=== PATIENT | female | born 1965 | race Caucasian/White ===

== ENCOUNTER 2017-03-21 20:06 | Observation (INO) | payer OTHER, SELFPAY ==
[~2017-03-21 20:06] MED LIST: ISOVUE-370 76%-LOCM 1 ML ONE
--- OUTSIDE RECORDS SUMMARY | 2017-03-21 20:10 | XMS | Clinical Summary ---
:1965 Author Organization [facility] Address [address] [place] [address] Phone Care Team Providers Name Role Phone , Primary Care Provider Unavailable Allergies Active Allergy Reactions Severity Noted Date Comments Penicillins 12/05/2016 Ondansetron Hcl (Pf) 12/05/2016 Current Medications Prescription Sig. Disp. Refills Start Date End Date Status aspirin 81 MG EC Take 81 mg by Active tablet mouth daily. metoprolol (TOPROL-XL) Take 50 mg by Active 50 MG 24 hr tablet mouth daily. lisinopril Take 10 mg by Active (PRINIVIL,ZESTRIL) 10 mouth daily. MG tablet amiodarone (PACERONE) Take 1 tablet 30 tablet 1 12/08/2016 12/08/2017 Active 200 MG tablet (200 mg total) by mouth daily. amLODIPine (NORVASC) 5 Take 1 tablet (5 30 tablet 1 12/08/2016 12/08/2017 Active MG tablet mg total) by mouth daily. 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 (HCC) Benign hypertension 12/07/2016 PAD (peripheral artery disease) (HCC) 12/07/2016 Anxiety disorder 12/07/2016 Chest pain with moderate risk of acute coronary syndrome 12/05/2016 Social History Tobacco Use Types Packs/Day Years Used Date Former Smoker 0.5 5 Quit: 12/05/2012 Smokeless Tobacco: Never Used Tobacco Cessation:Counseling Given: No Alcohol Use Drinks/Week oz/Week Comments No Sex Assigned at Date Recorded Not on file Last Filed Vital Signs Vital Sign Reading Time Taken Blood Pressure 104/73 12/08/2016 4:00 PM CDT Pulse 63 12/08/2016 4:00 PM CDT Temperature 37.1 C (98.8 F) 12/08/2016 4:00 PM CDT Respiratory Rate 20 12/08/2016 4:00 PM CDT Oxygen Saturation 98% 12/08/2016 4:00 PM CDT Inhaled Oxygen Concentration - - Weight 56.2 kg (123 lb 12.8 oz) 12/08/2016 6:41 AM CDT Height 157.5 cm (5' 2") 12/05/2016 4:26 PM CDT Body Mass Index 22.64 12/08/2016 6:41 AM CDT Plan of Treatment Not on file Implants Implanted Type Area Sales Property Manager Device Expiration Model / Identifier Date Serial / Lot Env Absrb Antibact Tyrx Med - [id number] Cardiovascular N/A: [employer]:CARD 12/21/2016 [id number] / Implanted:Qty: 1 on 12/08/2016 by Carline Orona MD Chest RHY:DISEASE MGT / Wall Device Gen Viva Scrtd [id number] - [id number] Defibrillators [employer]TRONIC:CARD [id number] / Implanted:Qty: 1 on 12/08/2016 by Carline Orona MD RHY: DISEASE MGT [id number] / Results ARRYTHMIA IMPLANT REPORT - SCAN (02/01/2017 1:31 PM)RHYTHM STRIP - SCAN (2016 9:50 AM)from Last 3 Months
--- OUTSIDE RECORDS SUMMARY | 2017-03-21 20:10 | XMS | Clinical Summary ---
:1965 Author Organization [facility] Address [address] [place] [address] Phone Care Team Providers Name Role Phone , Primary Care Provider Unavailable Allergies Not on File Current Medications Not on file Active Problems Not on file Social History Tobacco Use Types Packs/Day Years Used Date Never Assessed Sex Assigned at Date Recorded Not on file Last Filed Vital Signs Not on file Plan of Treatment Not on file Results Not on filefrom Last 3 Months
[2017-03-21 20:53] LABS: #Basophils 0.1 thou/uL (0.0-0.2); #Eosinphils 0.1 thou/uL (0.0-0.7); #Lymphocytes 1.8 thou/uL (1.20-3.40); %Eosinophils 1.3 % (0.0-10.0); %Lymphocytes 20.2 % (21.0-51.0); %Monocytes 10.7 % (0.0-10.0); Hematocrit 42.6 % (36.0-47.0); Mean Platelet Volume 7.7 fL (7.4-10.4); White Blood Cell (WBC) Count 8.9 thou/uL (4.8-10.8)
--- NOTE | 2017-03-21 20:58 | RAD ---
UPRIGHT PORTABLE CHEST ONE VIEW: History: 51-year-old female with cough and crushing chest pain. FINDINGS: Left ICD. Post underlying sternotomy. Post-operative changes involving the aortic arch with an aorti c left subclavian bypass graft based on prior CT. Cardiomegaly. Increased linear and interstitial ma rkings bilaterally. Prominent proximal pulmonary artery segments. IMPRESSION: Cardiomegaly with post underlying sternotomy and left ICD. Enlarged proximal portable artery segment s. Mild increased linear interstitial markings bilaterally suggesting some mild congestion without c onfluent pneumonia or overt edema. Stable from prior study. POS: SUNDAY
[2017-03-21 20:59] LABS: PTT 28.7 SEC (22.9-36.1); Prothrombin Time 13.8 SEC (12.0-14.7)
[2017-03-21 21:13] LABS: ALT (SGPT) 34 U/L (8-55); AST (SGOT) 26 U/L (5-34); Alkaline Phosphatase 75 U/L (40-150); Anion Gap 14 mmol/L (10-20); BUN (Urea Nitrogen) 25 mg/dL (7.0-18.7); Bilirubin, Total 0.4 mg/dL (0.2-1.2); CK (CPK) 45 U/L (29-168); Calc. Creatinine Clearance 0 mL/min (70-130); Calcium 9.1 mg/dL (7.8-10.44); Carbon Dioxide 22 mmol/L (22-29); Chloride 106 mmol/L (98-107); Estimated GFR-MDRD 61; Lipase 48 U/L (8-78); Protein, Total 8.1 g/dL (6.0-8.3)
[2017-03-21 21:17] LABS: Troponin I 0.011 ng/mL (< 0.028)
[2017-03-21] MEDS ORDERED: Nitroglycerin 0.4 MG TAB (25 Tab Bottle) ONE (21:36)
[2017-03-21] MEDS ORDERED: Promethazine HCl 25 MG/ML VIAL ONE (21:36)
[2017-03-21] MEDS ORDERED: Morphine 10 MG/ML VIAL ONE (22:27)
[2017-03-21 22:54] LABS: Bilirubin Negative (Negative); Blood, Urine Negative (Negative); Glucose, Urine (Dipstick) Negative (Negative); Ketone, Urine Negative (Negative); Nitrite Negative (Negative); Protein, Urine (Dipstick) Negative (Neg-Trace)
[2017-03-22] MEDS ORDERED: Morphine 10 MG/ML VIAL ONE (00:39)
[2017-03-22] MEDS ORDERED: Ondansetron ODT 4 MG TAB SL PRN (02:10)
[2017-03-22] MEDS ORDERED: Ondansetron HCl/PF 4 MG/2 ML Vial IVP PRN ×2 (02:10→08:04)
[2017-03-22 02:36] VITALS: BMI 22.4
[2017-03-22 02:39] LABS: Troponin I 0.025 ng/mL (< 0.028)
[2017-03-22] MEDS: Morphine 10 MG/ML VIAL SLOW IVP PRN ×2 (02:53→07:09)
[2017-03-22 05:50] LABS: Troponin I 0.023 ng/mL (< 0.028)
[2017-03-22] MEDS ORDERED: Nitroglycerin 0.4 MG TAB (25 Tab Bottle) PO PRN (08:04)
[2017-03-22] MEDS ORDERED: Acetaminophen 325 MG TAB PO PRN (08:04)
[2017-03-22] MEDS ORDERED: Ondansetron ODT 4 MG TAB PO PRN (08:04)
[2017-03-22] MEDS ORDERED: Mag-Al 1200 mg/1200 mg/30 ML UDCUP PO PRN (08:04)
[2017-03-22] MEDS ORDERED: Lorazepam 1 MG TAB PO PRN (08:04)
--- NOTE | 2017-03-22 08:28 | HP ---
PRIMARY CARE PHYSICIAN: Dr. Beth. CHIEF COMPLAINT: Chest pain. HISTORY OF PRESENT ILLNESS: Ms. Hunt is a pleasant 51-year-old female who has a very complicated cardiac history. She has a history of coarctation of the aorta as well as ventricular septal defec t, which has been repaired. She also has a history of a defibrillator placed and she was recently h ospitalized back in September of this year with chest pain and at that time, she had a CT dissection debbie col, which was negative for dissection and it demonstrated stable coarctation of the aorta with a by pass and very severe dilatation of the main pulmonary artery and trunk and left pulmonary arteries. She also had an echocardiogram done at that time, which was essentially normal, showing an ejection fraction of 55%-60%, normal wall motion and normal chamber dimensions. The plan was for the patien t to undergo a stress test; however, the patient had left against medical advice. Since that time, the patient says that she was hospitalized back in September at which time her defibrillator went off 14 t imes and she was transferred to [facility] in the [facility] where she says she had a new defibr illator placed. She says after that she was doing okay until 2:00 p.m. yesterday when she said she had return of the chest pain, she says it was radiating to her back. It felt like a pressure. She says she also got a funny feeling in her neck and her jaw. She said this happened while she was nadeen misael a football game. She says there was no exertion. She also noted some nausea and said she had to go the bathroom several times with loose stools. She described it as a heaviness and pressure. No shortness of breath; however, but she does note increasing shortness of breath on exertion recen tly. She denies any heavy lifting. She says her does pretty much all of the lifting in the home and she got very anxious and scared and for this reason, she came to the ER for evaluation. I n the ER, she was given up to she says 5 sublingual nitroglycerin without relief. She says that the pain is still present, somewhat improved, but not completely gone yet. REVIEW OF SYSTEMS: Constitutional: There have been no fevers, chills, no night sweats. No weight loss. HEENT: She says she has a headache related to the nitroglycerin. No visual changes, no sore throat, rhinorrhea, neck pain, no adenopathy. Pulmonary: No hemoptysis, no cough, no wheezing. C ardiovascular: As the history of present illness. Gastrointestinal: No abdominal pain. She has h ad some nausea, but no vomiting and she has also had some loose stools. Genitourinary: No urinary frequency, hematuria, no hesitancy. Neurologic: No focal weakness, numbness, no seizures. Psychia tric: No symptoms of anxiety or depression. Skin and Integument: No skin changes. No rash. PAST MEDICAL HISTORY: Significant for ventricular septal defect, coarctation of the aorta, status p ost repair, hypertension, peripheral vascular disease, dyslipidemia, recurrent pleural effusions req uiring bleomycin. ALLERGIES: PENICILLIN and ZOFRAN. PAST SURGICAL HISTORY: She had pulmonary artery banding in 1967, ventriculoseptal defect repair in 1978 and again in 2000, coarctation repair in 2005, cholecystectomy and also a left iliac artery nabil t was completely occluded and required a stent placement in 03/2016, a right carotid endarterectomy and AICD placement, IVC filter placement, and hysterectomy. FAMILY HISTORY: Significant for coronary artery disease in her father. SOCIAL HISTORY: She is . She has two children. She is a former smoker. She quit 3 years a go. She says she only smoked for a very short period of time 3 years with minimal cigarettes during that time and denies any alcohol use. CODE STATUS: FULL CODE. CURRENT MEDICATIONS: Include amiodarone 200 mg daily, metoprolol 50 mg daily, lisinopril 10 mg ulices y, aspirin 81 mg daily, amlodipine 5 mg daily. PHYSICAL EXAMINATION: GENERAL: She is alert and oriented. She appears to be in no acute distress. VITAL SIGNS: Blood pressure was 128/63, heart rate 62, respiratory rate of 16, temperature is 97.6. HEENT: Her pupils are equal, round, and reactive. Extraocular muscles are intact. Sclerae are ani cteric. Throat: There is no erythema, no exudates. NECK: No adenopathy, no bruits. LUNGS: Clear to auscultation. There is no wheezing, no rales. CARDIOVASCULAR: She has a normal S1, S2. She does have a grade 2/6 systolic murmur. ABDOMEN: Soft, it is nontender, nondistended. Positive for bowel sounds. No rebound, no guarding. EXTREMITIES: There is no edema. She has got palpable pulses. NEUROLOGICALLY: The exam is nonfocal. SIGNIFICANT LABORATORY DATA AND X-RAY FINDINGS: On lab results, EKG is ventricularly paced. Her ur inalysis was essentially negative. CBC: White blood cell count 8.9, hemoglobin 14.5, hematocrit 42 .6, platelet count was 204. INR is 1.0. Sodium 138, potassium 3.9, chloride is 106, CO2 is 22, BUN of 25, creatinine 0.97, glucose is 107. ASSESSMENT AND PLAN: This is a 51-year-old female that presents with chest pain. This is in the se tting of patient who has had significant congenital heart disease and defects. This puts her at [facility] increased risk of coronary artery disease, especially with her history of peripheral vascular di sease and the need for stent placement. She will therefore be placed in observation. She has alrea dy been ruled out. We will get a nuclear stress test and also consult Cardiology due to the complex nature of her cardiac history.
[2017-03-22] MEDS ORDERED: Aspirin 325 MG TAB PO SCH (09:00)
[2017-03-22] MEDS ORDERED: AMIODARONE HCL 200 MG PO SCH (09:00)
[2017-03-22] MEDS: Aspirin 81 mg Enteric Coated Tablet PO SCH (09:03)
[2017-03-22] MEDS: Amlodipine 10 MG TAB PO SCH (09:03)
[2017-03-22] MEDS: Lisinopril 10 MG TAB PO SCH (09:04)
[2017-03-22] MEDS: Enoxaparin Sodium 40 MG/0.4 ML SYRINGE SC SCH ×2 (09:04→14:42)
[2017-03-22] MEDS: Lorazepam 0.5 MG TAB PO PRN ×2 (09:10→21:06)
[2017-03-22] MEDS: Lorazepam 2 MG/ML VIAL SLOW IVP PRN (13:02)
[2017-03-22] MEDS: Nitroglycerin 2% Ointment 1 INCH/1 GM Packet TOP SCH ×2 (15:17→21:11)
[2017-03-22] MEDS ORDERED: Iopamidol 370 76% 100 ML VIAL ONE (15:40)
[2017-03-22] MEDS ORDERED: Heparin 1,000 UNITS/ML VIAL ONE (17:28)
--- NOTE | 2017-03-22 17:36 | SPC ---
PICC LINE PLACEMENT FLUOROSCOPIC GUIDED: Date: 03/22/17 HISTORY: Need for long-term IV access. COMPARISON: PICC line dated 04/08/16. TECHNIQUE/FINDINGS: Informed consent was already obtained. Timeout was performed. The right arm was prepped and draped i n the normal sterile fashion. Using ultrasound guidance, the right brachial vein was initially acces sed as there was only a right brachial vein and a small collateral basilic vein available for the PI CC line. The brachial vein was accessed using a micropuncture kit. A wire was placed, although the w lindy at the level of the axilla could not be passed through. There is a focal stenosis. A small amoun t of contrast was instilled through the sheath and the small volume extraluminal contrast was seen. Then, the small basilic collateral vessel was accessed using Micropuncture kit after using 2 mL of l idocaine for local anesthesia. Wire was placed, and through a peel-away sheath, a 36 cm PICC was rodney falguni. The patient tolerated the procedure well and without complication. Fluoro Time: 1.7 minutes. IMPRESSION: Technically successful placement of a right basilic collateral PICC. The basilic at the level of the axilla was focally occluded or very stenosed and the contrast did extravasate to the level of the a xillary vein. POS: SUNDAY
--- NOTE | 2017-03-22 17:52 | CT ---
CTA CHEST AND ABDOMEN AORTIC DISSECTION PROTOCOL: Date: 03/22/17 HISTORY: Congenital heart disease, persistent chest pain. TECHNIQUE: CT angiogram of the chest and abdomen was performed after the intravenous administration of contrast . 3D rendering provided. FINDINGS: Heart size is markedly enlarged. PICC is in place with tip at the inferior SVC. There is some contrast of the right axilla from the PICC procedure. There is severe dilatation of the pulmonary trunk measuring 5.0 cm in size. Left and right pulmonary arteries are markedly enlarged. The aorta at the annulus measures 30.0 mm. The sinus of Valsalva measure 43.0 mm. Sinotubular juncti on measures 31.0 mm. Mid descending aorta measures 31.0 mm. There is coarctation of aorta with a subclavian aortic graft which is intact without significant vicente nosis. The aortic contour distal to this is normal. No aneurysmal dilatation. No dissection. There is an IV C filter at the level of the renal veins. The left renal vein is just craniad to this and the right renal vein is at the level of the IVC filter. There is a stent graft within the left common iliac artery which is patent. There is moderate pulmonary edema. Kidneys are unremarkable. Prior cholecystectomy. [place] effect of common bile duct. Spleen is unr emarkable, as well as the adrenal glands. IMPRESSION: 1. Intact left subclavian to thoracic aortic bypass with mild soft and calcific plaque. 2. Massive dilatation of the pulmonary trunk measuring up to 51 mm. 3. Mild pulmonary edema. 4. No evidence of aortic dissection. 5. Patent left common iliac artery stent. POS: SUNDAY
--- NOTE | 2017-03-22 18:23 | CON ---
DATE OF CONSULTATION: 03/22/2017 REFERRING PHYSICIAN: Taran Garcia M.D. PRIMARY CARE PHYSICIAN: Reese Beth M.D. in [place]. HISTORY OF PRESENT ILLNESS: Ms. Hunt is a 51-year-old lady with complex cardiac history involvin g coarctation repair, pulmonary arterial banding and VSD repair as a child. She has not followed [facility] congenital heart disease specialist due to insurance issues and only recently received SSI benefi ts that include Medicaid coverage. She had been seen multiple times at [facility] in [place], most recently in September when her defibrillator discharged 14 times consecutively. She has had a replacement device and has been stable from a rhythm standpoint since this time as far as she knows. She has been in her normal state of health without any cardiovascular symptoms until yesterday about 2:00 complaining of chest pain that radiated into the back. It feels like a pressure with some sha rp, associated features. It is nonexertional. It has been persistent since its onset at 2:[address] afternoon and serial cardiac enzymes proved negative for myocardial injury. Her rhythm has bee n stable on telemetry during her observation. PAST MEDICAL HISTORY: 1. VSD repair. 2. Left subclavian bypass for coaptation repair. 3. Hypertension. 4. Peripheral vascular disease with a history of iliac stenting. 5. Dyslipidemia. 6. Recurrent pleural effusions requiring bleomycin. PAST SURGICAL HISTORY: 1. Pulmonary artery banding. 2. VSD patch repair surgically. 3. Coarctation repair with left subclavian bypass in the distal thoracic aorta. 4. Cholecystectomy. 5. Left iliac artery stent. 6. Right carotid endarterectomy. 7. AICD implantation with replacement device. 8. IVC filter placement. 9. Hysterectomy. ALLERGIES: ONDANSETRON, PENICILLIN and HYDROCODONE. SOCIAL HISTORY: She is . She has two children. She is a former smoker, quit 3 years ago. She denies illicit drug use or alcohol abuse. FAMILY HISTORY: Negative with respect to premature atherosclerosis. CURRENT MEDICATIONS: At home include, 1. Amiodarone 200 mg daily. 2. Metoprolol 50 mg daily. 3. Lisinopril 10 mg daily. 4. Aspirin 81 mg daily. 5. Amlodipine 5 mg daily. REVIEW OF SYSTEMS: As per history of present illness. Remainder of 12 system review is negative. PHYSICAL EXAMINATION: VITAL SIGNS: Blood pressure is 120/63, pulse 62 and regular, respiratory rate 16 and nonlabored, te mperature 97.6, oxygen saturation 97% on room air. GENERAL: This is a well-developed, well-nourished 51-year-old female in no acute distress . She is alert and oriented x4. She answers questions appropriately. HEENT: The head was atraumatic, normocephalic. Pupils are equally round and reactive. Sclerae and conjunctivae are clear. There are no oral lesions. NECK: Supple, no JVD, thyromegaly, carotid bruits. CHEST: Symmetrical inspiration and expiration. HEART: Regular in rate and rhythm with a 2/6 systolic murmur at the left upper sternal border. PMI is nondisplaced, not enlarged. LUNGS: Clear to auscultation in all [place]. No adventitious sounds appreciated. ABDOMEN: Soft, nontender, nondistended, without mass or organomegaly. Bowel sounds are present in all 4 quadrants. No flank bruits auscultated. EXTREMITIES: 2+ pulses noted bilaterally. Lower extremity strength 5/5 bilaterally. There is no c lubbing, cyanosis or edema. NEUROLOGIC: Grossly intact with no focal motor deficits appreciated. DATABASE: EKG reveals sinus rhythm with right bundle branch block. There is intermittent AV pacing . LABORATORY DATA: CBC reveals a white count 8, H\T\H 14 and 42, platelet count 204,000, differential white blood cells normal. Red cell indices normocytic. Coagulation studies are normal. Chemistri es reveal normal electrolytes, BUN and creatinine 25 and 0.9, GFR is estimated at 61. Glucose 107. LFTs are normal. CK and troponin enzymes are normal serially. BNP was mildly elevated at 482. Review of her previous echo showed preserved LV function with ejection fraction 55%-60%. There was a mild residual VSD in the area of patch repair. Pulmonary arteries on CT chest done in July is year showed severely dilated pulmonary arteries, no evidence of aortic dissection. ASSESSMENT: 1. Persistent chest pain with negative workup for myocardial injury. 2. Complex congenital heart disease history. 3. History of left subclavian descending thoracic aortic bypass for coarctation. 4. History of pulmonary arterial banding with normal pulmonary artery pressures on last echocardiog antonino. 5. Hypertension, controlled. 6. Chronic kidney disease stage II. RECOMMENDATIONS: 1. From a cardiac standpoint, she is currently stable. Cardiac enzymes are serially flat with no e vidence of myocardial injury. I think our focus here should be on evaluation of her congenital hear t disease status as well as the status of her aorta with the character and quality of her pain and t he increased likelihood for issues related to her complex surgical history rather than coronary dise ase focus, I would recommend a repeat echo to evaluate the status of her VSD repair, her right ventr icular function and valvular status. We will compare this to her previous study dated earlier this year. 2. We would recommend a CT of the chest with dissection protocol given the quality and nature of he r pain and a history of subclavian to aortic bypass for coarctation repair. 3. I will have [employer] come to evaluate her device to evaluate for paroxysmal arrhythmias and vishnu e further recommendations when the database is further completed. I appreciate the opportunity to p articipate.
[2017-03-23] MEDS: Nitroglycerin 2% Ointment 1 INCH/1 GM Packet TOP SCH (06:33)
[2017-03-23 07:48] VITALS: TEMP 99.1
--- NOTE | 2017-03-23 08:49 | PDOC.PN ---
- Subjective Encounter Start Date: 03/23/17 Encounter Start Time: 08:46 Ms. Hunt says she has stable chest and back pain. - Objective Resuscitation Status: Resuscitation Status FULL:Full Resuscitation MAR Reviewed: Yes Vital Signs & Weight: Vital Signs (12 hours) Temp Pulse Resp BP BP Pulse Ox 03/23/17 07:55 99.1 F 62 18 03/23/17 07:43 99.1 F 62 18 118/61 96 03/23/17 05:13 20 03/23/17 03:30 98.7 F 75 18 132/86 96 03/23/17 01:05 16 128/63 03/22/17 23:09 98.7 F 63 16 91/52 L 97 Weight Admit Weight 122 lb 12.8 oz Weight 126 lb 9.6 oz I&O: 03/22/17 03/23/17 03/24/17 06:59 06:59 06:59 Intake Total 120 940 Output Total 400 Balance -280 940 Result Diagrams: 03/21/17 20:42 03/21/17 20:42 Phys Exam - Physical Examination HEENT: PERRLA Respiratory: no wheezing, no rales, no rhonchi, clear to auscultation bilateral Cardiovascular: RRR, no significant murmur Gastrointestinal: soft, non-tender, positive bowel sounds Musculoskeletal: no edema Dx/Plan (1) CHD (congenital heart disease) Status: Chronic Comment: s/p PA banding and VSD repair as child (2) HTN (hypertension) Code(s): I10 - ESSENTIAL (PRIMARY) HYPERTENSION Status: Chronic Qualifiers: (3) PVD (peripheral vascular disease) with claudication Code(s): I73.9 - PERIPHERAL VASCULAR DISEASE, UNSPECIFIED Status: Chronic (4) S/P IVC filter Status: Chronic Comment: unknown date. (5) Chest pain Code(s): R07.9 - CHEST PAIN, UNSPECIFIED Status: Resolved Comment: NM stress test tomorrow - Plan * Chest and back pain- ? etiology * CTA did not demonstrate any new findings * Echo has yet to be done, but patient would prefer to continue treatment in [place], where she had her prior surgery * Stable for discharge home..
[2017-03-23] MEDS: Lorazepam 2 MG/ML VIAL SLOW IVP PRN (09:20)
[2017-03-23] MEDS: Lisinopril 10 MG TAB PO SCH (09:20)
[2017-03-23] MEDS: Aspirin 81 mg Enteric Coated Tablet PO SCH (09:20)
[2017-03-23] MEDS: Amlodipine 10 MG TAB PO SCH (09:20)
[2017-03-23 09:21] VITALS: BP 128/63
--- NOTE | 2017-03-23 13:44 | DIS ---
PRIMARY CARE PHYSICIAN: Dr. Beth DATE OF ADMISSION: 03/22/2017 DATE OF DISCHARGE: 03/23/2017 DISCHARGE DISPOSITION: Home. PRIMARY DISCHARGE DIAGNOSES: 1. Chest and back pain, etiology is unknown. 2. History of coarctation of the aorta, status post repair. 3. History of ventricular septal defect status post repair. 4. History of pulmonary artery banding. 5. History of peripheral vascular disease with a left iliac artery occlusion, status post stent. 6. Generalized anxiety. DISCHARGE MEDICATIONS: Metoprolol succinate 50 mg daily, lisinopril 10 mg daily, lorazepam 0.5 mg t wice a day as needed, aspirin 81 mg daily, amlodipine 5 mg daily, amiodarone 200 mg daily. PROCEDURES DONE DURING ADMISSION: The patient had a CT dissection protocol which there was no evide nce of aortic dissection, the left subclavian thoracic aorta bypass had some small soft and calcific plaque. There was massive dilatation of the pulmonary trunk measuring 51 mm, mild pulmonary edema and a patent left common iliac stent. CODE STATUS: Full code. ALLERGIES: ZOFRAN, PENICILLIN and HYDROCODONE. HOSPITAL COURSE: Ms. Hunt is a pleasant 51-year-old female that presented to the emergency room complaining of chest pain, the full details of which are outlined in my history and physical. The p atient had a recent hospitalization within the last 7 months for chest pain as well. She was admitt ed again on this occasion and placed in observation. She was ruled out. Cardiology was consulted eloise barnes her complex cardiac history. A CT dissection protocol was obtained which was negative for any acute changes. An echocardiogram was planned; however, the patient decided that she would prefer to get her care in [place] where she had her previous surgeries before. It is noted that she made thi s decision after the IV morphine was discontinued. The patient seems to have a significant amount o f anxiety surrounding her diagnoses and I explained to her that it might be of some benefit to seek some counseling or possibly even a support group for adult survivors of congenital heart disease. S he believes that this was likely a good idea as well. She says that she is going to pursue further cardiac evaluation again in [place] and plans to see Dr. Araya in the outpatient setting with regards to her general Cardiology needs. She appears clinically stable. Her chest pain has not changed an d it is noted that she has had these symptoms on and off for the last 7 months without any significa nt changes on either her CT scan for a previous echo that had been done before. Therefore, I believ e it is safe for her to be discharged home and to have close outpatient followup with her primary ca re physician and also with the followup as previously mentioned.
== END 2017-03-23 10:04 | disposition home or self-care (01) ==
LOC: ERS 20:06 → 2SW 03-22
PROVIDERS: ADMIT Internal Medicine; ATTEND Internal Medicine
DX: R07.89 Other chest pain (principal); M54.9 Dorsalgia, unspecified; E78.5 Hyperlipidemia, unspecified; I10 Essential (primary) hypertension; J90 Pleural effusion, not elsewhere classified; I73.9 Peripheral vascular disease, unspecified; F41.1 Generalized anxiety disorder; Z88.0 Allergy status to penicillin; Z88.5 Allergy status to narcotic agent; Z88.8 Allergy status to other drugs, medicaments and biological substances; Z79.82 Long term (current) use of aspirin; Z79.899 Other long term (current) drug therapy; Z90.710 Acquired absence of both cervix and uterus; Z95.810 Presence of automatic (implantable) cardiac defibrillator; Z95.5 Presence of coronary angioplasty implant and graft; Z95.1 Presence of aortocoronary bypass graft; Z95.828 Presence of other vascular implants and grafts; Z98.890 Other specified postprocedural states; Z87.891 Personal history of nicotine dependence; Z87.74 Personal history of (corrected) congenital malformations of heart and circulatory system; Z82.49 Family history of ischemic heart disease and other diseases of the circulatory system
CPT/HCPCS: 36415; 36569; 71010; 71275; 80053; 80061; 81003; 82550; 82553; 83690; 83880; 84484; 85025; 85610; 85730; 93005; 94760; 96361; 96374; 96375; 96376; A4216; C1751; G0378; J1644; J1650; J2060; J2270; J2550; Q0162

== ENCOUNTER 2018-08-12 18:54 | Observation (INO) | payer MEDICAID, OTHER ==
[2018-08-12 19:27] LABS: #Basophils 0.1 thou/uL (0.0-0.2); #Eosinphils 0.3 thou/uL (0.0-0.7); #Lymphocytes 4.4 thou/uL (1.20-3.40); #Monocytes 1.5 thou/uL (0.11-0.59); #Neutrophils 6.5 thou/uL (1.40-6.50); %Basophils 1.1 % (0.0-1.0); %Eosinophils 2.5 % (0.0-10.0); %Lymphocytes 34.4 % (21.0-51.0); %Monocytes 11.8 % (0.0-10.0); %Neutrophils 50.2 % (42.0-75.0); Hemoglobin 15.1 g/dL (12.0-16.0); Mean Corpuscular Hemoglobin 30.2 pg (27.0-31.0); Mean Corpuscular Volume 91.5 fL (78.0-98.0); Mean Platelet Volume 7.5 fL (7.4-10.4); Platelet Count 382 thou/uL (130-400); RBC Distribution Width 12.6 % (11.5-14.5); Red Blood Cell (RBC) Count 5.01 mill/uL (4.20-5.40); White Blood Cell (WBC) Count 12.9 thou/uL (4.8-10.8)
[2018-08-12] MEDS ORDERED: Morphine 4 MG/ML VIAL ONE ×2 (19:44→20:57)
[2018-08-12] MEDS ORDERED: Promethazine HCl 25 MG/ML VIAL ONE (19:44)
--- NOTE | 2018-08-12 19:47 | RAD ---
CHEST ONE VIEW: 08/12/18 COMPARISON: 03/21/17 HISTORY: Pain. FINDINGS: Stable left sided defibrillator. There is sternotomy wires. Atherosclerosis of the aorta and cardiome melodie is again demonstrated. Hyperinflation with chronic changes. No pneumothorax or acute osseous abn ormalities. 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 IMPRESSION: No acute cardiopulmonary process. POS: [facility]
[2018-08-12 19:49] LABS: ALT (SGPT) 30 U/L (8-55); AST (SGOT) 19 U/L (5-34); Albumin 4.5 g/dL (3.5-5.0); Alkaline Phosphatase 101 U/L (40-150); Anion Gap 16 mmol/L (10-20); BUN (Urea Nitrogen) 16 mg/dL (9.8-20.1); Bilirubin, Total 0.5 mg/dL (0.2-1.2); CK (CPK) 30 U/L (29-168); Calc. Creatinine Clearance 0 mL/min (70-130); Calcium 9.8 mg/dL (7.8-10.44); Carbon Dioxide 26 mmol/L (22-29); Chloride 101 mmol/L (98-107); Estimated GFR-MDRD 77; Globulin 3.6 g/dL (2.4-3.5); Glucose 92 mg/dL (70-105); Potassium 3.3 mmol/L (3.5-5.1); Protein, Total 8.1 g/dL (6.0-8.3); Sodium 140 mmol/L (136-145)
--- NOTE | 2018-08-12 21:55 | CT ---
CT CHEST WITHOUT CONTRAST 08/12/18 HISTORY: Chest pain. Back pain. COMPARISON: Dissection protocol 03/22/17. FINDINGS: Limited evaluation of the mediastinum due to the lack of IV contrast. There is no mediastinal mass, lymphadenopathy or hematoma. There are stable calcifications along the anterior aspect of the pericardium. There is stable prominence of bilateral central and main pulmonar y arteries. There is stable calcification involving the aortic arch. No periaortic fat stranding. Sta ble bypass from the left subclavian artery to the descending thoracic aorta. The visualized upper solid abdominal viscera is unremarkable. Surgically absent gallbladder. IVC filt er is noted. Trachea and central bronchi are patent. There are patchy linear opacities involving the left and right upper lobes, similar to the previous examination suggesting areas of scar and atelecta sis. No suspicious masses or consolidation. No pneumothorax. No significant pleural fluid. No lytic or blastic lesions in the osseous structures. IMPRESSION: 1. Stable dilatation or the pulmonary arterial system, compatible with pulmonary artery hyperten randolph. 2. Stable atherosclerosis of the aorta. 3. Redemonstration of a left subclavian to thoracic aorta bypass. There is associated calcificat ion. POS: NO[facility]
[2018-08-12 23:03] LABS: Troponin I Less than 0.010 ng/mL (< 0.028)
[2018-08-13 00:45] VITALS: BMI 24.4
[2018-08-13] MEDS: traMADol HCl 50 MG TAB PO PRN ×2 (01:09→05:16)
[2018-08-13] MEDS: Lorazepam 0.5 MG TAB PO PRN ×2 (01:10→22:43)
[2018-08-13] MEDS ORDERED: HYDROcodone/Acetaminophen 5/325 mg Tablet PO PRN ×2 (01:10)
[2018-08-13] MEDS ORDERED: Promethazine HCl 12.5 MG in Sodium Chloride 0.9% 50 ML IVPB PRN (01:11)
[2018-08-13 01:31] LABS: Troponin I Less than 0.010 ng/mL (< 0.028)
[2018-08-13] MEDS ORDERED: Ondansetron PF 4 MG/2 ML Vial IVP PRN (02:14)
[2018-08-13] MEDS ORDERED: Zolpidem Tartrate 5 MG TAB PO PRN (02:14)
--- NOTE | 2018-08-13 02:46 | HP ---
CHIEF COMPLAINT: Chest pain. HISTORY OF PRESENT ILLNESS: This is a 53-year-old female presenting to the hospital with a significant history of coronary artery disease, status post CABG, as well as stent, and IVC filter, had an CA back in 2009, resulting in acute significant cardiac disease thereafter. The patient is being admitted for chest pain. States that the pain was apparently 10/10 in intensity at the site of her surgical site. The patient otherwise denies any other complaints. No associating factors. No alleviating or aggravating factors noted. The patient is seen and examined. All questions answered. ALLERGIES: TO ZOFRAN, PENICILLIN, AND HYDROCODONE. REVIEW OF SYSTEMS: All systems reviewed, pertinent positives in HPI, otherwise negative. FAMILY HISTORY: Positive for hypertension and coronary artery disease. SOCIAL HISTORY: Denies any smoking currently, quit 10 years ago. Used to do drugs. Social alcohol. HOME MEDICATIONS: See MAR. PHYSICAL EXAMINATION: VITAL SIGNS: Blood pressure 142/71, respiratory rate 18, temperature 98.8, and O2 saturations 100% on room air. GENERAL: Otherwise general, the patient lying in bed, in no acute discomfort. HEENT: Pupils are equal, round, and reactive to light and accommodation. Extraocular muscles are intact. Oral cavity moist and pink. NECK: Supple, mobile, and nontender. Thyroid appreciated. RESPIRATORY: Clear to auscultation bilaterally. No respiratory distress. CARDIOVASCULAR: S1 and S2. 2/6 systolic ejection murmur appreciated. No gallops or rubs noted. ABDOMEN: Positive bowel sounds. Soft, nontender, and nondistended. EXTREMITIES: 2+ peripheral pulses bilaterally. Trace edema. NEUROLOGIC: Cranial nerves 2 through 12 are intact. Alert and oriented x3. LABORATORY DATA: Laboratories [place], CBC reviewed. Basic metabolic panel reviewed. Troponin three negative thus far. The patient had a CT scan of the chest done while in the ER without contrast shows stable dilation of pulmonary arterial system, pulmonary hypertension, stable atherosclerosis of the aorta, and associated calcification of the left subclavian to thoracic aorta bypass. ASSESSMENT: 1. Chest pain. 2. Coronary artery disease. 3. Hyperlipidemia. 4. Hypertension. PLAN: At this point in time, we will admit the patient to Internal Medicine Team. Start the patient on aspirin, atorvastatin, beta georgina, and FREDDY. We will also provide DVT prophylaxis. At this point in time, we will also consult Cardiology given her extensive cardiac history. Place in observation. Possible discharge once the ACS is ruled out. FOLLOWUP VISITS: We will need to follow up with outpatient Cardiology within 1 to 2 weeks for potential stress test. Job ID: [id number]
[2018-08-13 05:44] LABS: #Eosinphils 0.2 thou/uL (0.0-0.7); #Lymphocytes 2.3 thou/uL (1.20-3.40); %Basophils 0.6 % (0.0-1.0); %Eosinophils 2.7 % (0.0-10.0); %Monocytes 13.7 % (0.0-10.0); Hemoglobin 13.7 g/dL (12.0-16.0); Mean Corpuscular HGB CONC 33.4 g/dL (32.0-36.0); Mean Corpuscular Hemoglobin 30.9 pg (27.0-31.0); Mean Corpuscular Volume 92.7 fL (78.0-98.0); Mean Platelet Volume 7.4 fL (7.4-10.4); Platelet Count 316 thou/uL (130-400); RBC Distribution Width 12.4 % (11.5-14.5); Red Blood Cell (RBC) Count 4.42 mill/uL (4.20-5.40); White Blood Cell (WBC) Count 7.5 thou/uL (4.8-10.8)
[2018-08-13 06:07] LABS: Anion Gap 11 mmol/L (10-20); BUN (Urea Nitrogen) 12 mg/dL (9.8-20.1); Calc. Creatinine Clearance 94 mL/min (70-130); Calcium 8.7 mg/dL (7.8-10.44); Carbon Dioxide 27 mmol/L (22-29); Chloride 103 mmol/L (98-107); Estimated GFR-MDRD Greater than 90; Glucose 83 mg/dL (70-105); Potassium 3.3 mmol/L (3.5-5.1); Sodium 138 mmol/L (136-145)
[2018-08-13 06:10] LABS: Troponin I 0.012 ng/mL (< 0.028)
[2018-08-13] MEDS ORDERED: Amlodipine 10 MG TAB PO SCH (09:00)
[2018-08-13] MEDS ORDERED: Enoxaparin Sodium 40 MG/0.4 ML SYRINGE SC SCH (09:00)
[2018-08-13] MEDS ORDERED: Amiodarone 200 MG TAB PO SCH (09:00)
[2018-08-13] MEDS ORDERED: Lisinopril 10 MG TAB PO SCH (09:00)
[2018-08-13] MEDS ORDERED: Aspirin 81 mg Enteric Coated Tablet PO SCH (09:00)
[2018-08-13] MEDS ORDERED: Ketorolac Tromethamine 30 MG/ML VIAL IVP SCH (09:45)
[2018-08-13] MEDS ORDERED: traMADol HCl 50 MG TAB PO PRN (10:15)
[2018-08-13] MEDS ORDERED: Potassium Chloride 20 MEQ TAB PO SCH (10:30)
[2018-08-13] MEDS: Morphine 4 MG/ML VIAL SLOW IVP PRN ×3 (11:08→20:42)
--- NOTE | 2018-08-13 11:44 | CON ---
DATE OF CONSULTATION: 08/13/2018 INDICATION FOR CONSULTATION: A 53-year-old female with chest pain. HISTORY OF PRESENT ILLNESS: This very unfortunate 53-year-old female has a history of congenital heart disease. She has had repair of a ventricular septal defect. Also, she has had banding of the pulmonary artery. She has also had a bypass from the left subclavian to the thoracic aorta due to a coarctation. She has been followed by lpn cma, Dr. Wilkinson in [place], [place]. She recently saw him earlier this year. She also had a defibrillator implanted. She has had pneumonia in the hospital back in late May and was in the hospital for more than 10 days on the ventilator. Since that time, she has been doing relatively well. She continues to smoke unfortunately. She smokes about 5 cigarettes a day, but has smoked up to about a pack a day and smoked for the last 10 years. She has had no significant problems otherwise, but has been having the chest discomfort yesterday while she was sitting watching TV. The pain occurred. She describes as being a sharp type pain which radiated into chest area radiating to the left neck and also to the back area, in the area of her previous lateral thoracotomy. She was seen in the emergency room and then was transferred to the floor. Her cardiac enzymes are negative. Her EKG shows 100% pacing from the AICD. At this time, this morning, she says she is feeling somewhat better, but still has some chest discomfort which comes and goes and is sharp in nature, radiating to the left back area and she says her nausea has improved. She also describes having some diaphoresis associated with the feet and hands, but no overall diuresis associated with the pain. I believe she was given some morphine in the emergency room with some help and then she has been placed on Toradol, but the pain is still rather persistent when it comes and goes, but again cardiac enzymes are negative and EKG is indeterminate. She has been told in the past that she needs to undergo a cardiac catheterization and her lpn cma in [place] has been trying to arrange this, but she has continued to put it off. She did have a cardiac catheterization in 2009, which showed mild coronary artery disease and has been advised to follow up and has also been advised to stop smoking and I reiterated that today that she absolutely needs to stop smoking. Her CT scan showed no acute changes and she does have bilateral enlargement of the pulmonary arteries and has what appears to be pulmonary hypertension. She had her echocardiogram she says within the last year with her lpn cma and reportedly was stable. PAST MEDICAL HISTORY: Noted for the congenital heart disease as noted above. She has had iliac stent placement in the left side. She has also had a right carotid endarterectomy performed. She has recurrent pleural effusions. She has had cholecystectomy, hysterectomy, and IVC filter placement. SOCIAL HISTORY: She is . She has 2 children. They are both adults. She is raising her grandchild. She continues to smoke. She has no alcohol use. She stays at home. FAMILY HISTORY: Noncontributory. ALLERGIES: SHE IS ALLERGIC TO ZOFRAN AND PENICILLIN. MEDICATIONS: Include: 1. At this time, amiodarone 200 mg a day, Norvasc 5 mg a day, aspirin 81 mg a day, atorvastatin 40 mg a day. 2. She has been placed on Lovenox. 3. 4. She is also on lisinopril 10 mg a day, metoprolol 50 mg a day, lorazepam 0.5 mg b.i.d. p.r.n. 5. She is also on other p.r.n. medications. REVIEW OF SYSTEMS: She has top dentures. She continues to smoke. She has no other complaints except for what was noted in the history of present illness. PHYSICAL EXAMINATION: GENERAL: Reveals a very pleasant, well-developed, middle-aged female. VITAL SIGNS: Blood pressure 124/63, heart rate is 62 and regular, respiratory rate 16. She is afebrile. HEENT: Shows the head to be normocephalic and atraumatic. She has a well- healed surgical incision over the right carotid. She has soft bilateral carotid bruits this may be radiating from the aortic area up into the carotids. Did not hear any significant bruits. The pulses are within normal limits. CHEST: Has late inspiratory wheezing noted in both upper lung whelan. Otherwise, I do not hear any rales or rhonchi. CARDIOVASCULAR: Reveals a regular rate and rhythm at this time and a soft systolic murmur of the entire precordium more of the sternal area. ABDOMEN: Soft and nontender. Positive bowel sounds are present. EXTREMITIES: Showed no clubbing, cyanosis, or edema. Femoral pulses are difficult to palpate but are present. I could not palpate popliteal or pedal pulses. She has a well-healed lateral thoracotomy incision of the left lateral chest. She has a defibrillator placed underneath the left clavicular area. NEUROLOGIC: She appears to be fully intact with no evidence of abnormalities. She has normal strength and normal tone. SKIN: Warm and dry at this time. IMAGING DATA: Her EKG shows 100% pacing, appears to be also a first-degree AV heart block. Chest x-ray shows cardiomegaly with bilateral enlarged pulmonary arteries. LABORATORY DATA: Shows a hemoglobin 13.7, WBC of 7.5. Potassium of 3.3, creatinine 0.68, blood sugar was 83, sodium was 138. IMPRESSION: 1. Congenital heart disease which appears to be stable. She does need to follow up with her lpn cma in [place] for further evaluation by cardiac catheterization. She last saw him within the last month or 2 and will need to follow up with him. At this time, I do not see indication that she is having any acute coronary issues. The coronary artery disease is stable. The cardiac enzymes are negative. She did not have a stress test within 10 years and has been waiting cardiac catheterization by her lpn cma for repeat evaluation. The EKG is indeterminate as she has 100% pacing from the AICD. 2. Chest pain, which most likely is due to musculoskeletal in nature, it comes and goes and started while she was at rest. She has had CT scan of the aorta, which did not show any evidence of dissection. 3. Pulmonary hypertension. She may be getting some discomfort from the pulmonary hypertension, but most likely is musculoskeletal noted on the left side after her left thoracotomy. 4. Peripheral vascular disease. I have advised her to stop smoking. As I cannot feel pedal pulses, she does have a left iliac stent and she has had a right carotid endarterectomy, but at this time, does not complain of claudication type symptoms. 5. Hypertension. At this time, the blood pressure is under good control. We will continue her present medications. 6. History of hypercholesterolemia. She will continue also on her atorvastatin. 7. Status post congenital heart disease repair. She still has on the last echocardiogram performed here in 2017 a small residual ventricular septal defect. This will need to be addressed also and has been followed by her lpn cma in [place]. At this time, I will give her IM Toradol and see if this will improve some of her symptoms. If she becomes pain-free, she could be discharged home later today and will follow up with her lpn cma in [place] for a planned cardiac catheterization. Job ID: [id number] SCARLET
[2018-08-13] MEDS ORDERED: Lidocaine Patch Removal 1 EACH TOP SCH (13:45)
[2018-08-13] MEDS ORDERED: Acetaminophen/Codeine 30-300mg Tablet PO SCH (13:45)
[2018-08-13] MEDS ORDERED: Iopamidol 370 76% 100 ML VIAL ONE (13:56)
[2018-08-13] MEDS ORDERED: Lidocaine 5% Patch TD SCH ×2 (15:00→20:00)
[2018-08-13 15:27] LABS: BHCG - Serum Negative (NEGATIVE); Pregs Control Background? CLEAR/WHITE (CLR/WHITE); Pregs Control Bar Appear? YES (CONTROL BAR)
--- NOTE | 2018-08-13 18:37 | PDOC.PN ---
- Subjective Encounter Start Date: 08/13/18 Encounter Start Time: 18:35 Pt seen for followup re: chest pain. Pt reports chest pain better, but still present. Improved with lidocaine patch and Tylenol 3. - Objective MAR Reviewed: Yes Vital Signs & Weight: Vital Signs (12 hours) Temp Pulse Resp BP BP Pulse Ox 08/13/18 15:05 98.2 F 71 20 120/60 96 08/13/18 12:30 99 08/13/18 12:25 71 18 99 08/13/18 11:06 98.6 F 65 16 122/60 16 L 08/13/18 08:57 62 08/13/18 08:56 124/63 08/13/18 07:12 98.6 F 62 16 124/63 93 L Weight Admit Weight 133 lb 9.6 oz Weight 133 lb 9.6 oz I&O: 08/12/18 08/13/18 08/14/18 06:59 06:59 06:59 Intake Total 240 840 Output Total 225 400 Balance 15 440 Result Diagrams: 08/13/18 05:21 08/13/18 05:21 EKG Reviewed by me: Yes (Tele: V-paced) Phys Exam - Physical Examination Constitutional: NAD HEENT: moist MMs Neck: supple Respiratory: clear to auscultation bilateral Cardiovascular: RRR Gastrointestinal: soft Neurological: moves all 4 limbs Psychiatric: normal affect, A&O x 3 Dx/Plan (1) Chest pain Code(s): R07.9 - CHEST PAIN, UNSPECIFIED Status: Acute Comment: Pt has been cleared by cardiology service. Awaiting CTA chest result to r/o PE. If CTA chest negative, will likely discharge home with prescription for tylenol 3 and lidocaine patches. (2) HTN (hypertension) Code(s): I10 - ESSENTIAL (PRIMARY) HYPERTENSION Status: Chronic Qualifiers: Comment: controlled - Plan * . Review of Systems - Review of Systems Constitutional: negative: fever, chills, sweats, weakness, malaise Respiratory: negative: Cough, Shortness of Breath, SOB with Excertion, Pleuritic Pain, Wheezing Cardiovascular: chest pain. negative: palpitations, orthopnea, paroxysmal nocturnal dyspnea, edema, light headedness - Medications/Allergies Allergies/Adverse Reactions: Allergies Allergy/AdvReac Type Severity Reaction Status Date / Time ondansetron Allergy Intermediate Hives Verified 08/13/18 02:25 [From Zofran (as hydrochloride)] Penicillins Allergy unknown Verified 08/13/18 02:25 hydrocodone AdvReac Intermediate itching Verified 08/13/18 00:49 Medications: Current Medications Albuterol/Ipratropium (Duoneb) 3 ml NEB [id number] PRN PRN Reason: SOB &/or Wheezing Last Admin: 08/13/18 12:25 Dose: 3 ml Amlodipine Besylate (Norvasc) 10 mg PO DAILY [facility] Aspirin (Ecotrin) 81 mg PO DAILY [facility] Last Admin: 08/13/18 08:57 Dose: 81 mg Atorvastatin Calcium (Lipitor) 40 mg PO HS [facility] Enoxaparin Sodium (Lovenox) 40 mg SC 0900 [facility] Last Admin: 08/13/18 08:55 Dose: 40 mg Ketorolac Tromethamine (Toradol) 30 mg IVP ONE [facility] Stop: 08/18/18 09:46 Last Admin: 08/13/18 10:21 Dose: 30 mg Lidocaine (Lidoderm 5% Patch) 2 patch TD Q24H [facility] Lisinopril (Zestril) 10 mg PO DAILY [facility] Last Admin: 08/13/18 08:56 Dose: 10 mg Lorazepam (Ativan) 0.5 mg PO BID PRN PRN Reason: Anxiety/Agitation Last Admin: 08/13/18 01:10 Dose: 0.5 mg Metoprolol Succinate (Toprol Xl) 50 mg PO DAILY [facility] Last Admin: 08/13/18 08:57 Dose: 50 mg Miscellaneous Medication (Lidocaine Patch Removal) 1 each TOP ASDIR [facility] Morphine Sulfate (Morphine) 2 mg SLOW IVP Q4H PRN PRN Reason: Severe Pain (7-10) Last Admin: 08/13/18 15:25 Dose: 2 mg Sodium Chloride (Flush - Normal Saline) 10 ml IVF Q12HR [facility] Last Admin: 08/13/18 08:55 Dose: 10 ml Sodium Chloride (Flush - Normal Saline) 10 ml IVF PRN PRN PRN Reason: Saline Flush Tramadol HCl (Ultram) 50 mg PO Q4H PRN PRN Reason: Moderate Pain (4-6) Zolpidem Tartrate (Ambien) 5 mg PO HSPRN PRN PRN Reason: Insomnia
[2018-08-13 19:58] VITALS: TEMP 98.1
[2018-08-13] MEDS ORDERED: Atorvastatin Calcium 40 MG TAB PO SCH (21:00)
[2018-08-14] MEDS: Morphine 4 MG/ML VIAL SLOW IVP PRN (02:48)
[2018-08-14 02:53] VITALS: BP 138/62
[2018-08-14] MEDS ORDERED: Lidocaine Patch Removal 1 EACH TOP SCH (08:00)
[2018-08-14] MEDS ORDERED: Amlodipine 10 MG TAB PO SCH (09:00)
--- NOTE | 2018-08-14 09:31 | CT ---
CT PULMONARY ANGIOGRAM WITH IV CONTRAST AND 3D MIP RECONSTRUCTIONS 08/13/18 PROVIDED CLINICAL HISTORY: Chest and back pain. FINDINGS: Comparison is made with the study dated 08/12/18 and 03/22/17. Marked dilation of the pulmonary outflow tract and main pulmonary arteries is redemonstrated, similar to prior examinations. Dystrophic appearance to the distal aspects of the right ventricle appears si milar to prior studies. Changes of thoracic aorta to subclavian bypass redemonstrated. There is no ev idence for central or segmental pulmonary embolus. Vascular calcification is noted. Left subclavian c ardiac pacing device is again seen. The lungs are free of consolidation. There is no pleural fluid or pneumothorax apparent. There is mat erial of increased density at the right lung base, which may reflect aspirated contrast. This was not present on the prior examination of 08/12/18. The airway appears patent and of normal caliber. There is no evidence for thoracic lymph node enlargement. There are prominent by number and mildly enlarged portacaval lymph nodes which appears similar to the 03/22/17 examination. IMPRESSION: 1. No evidence for central or segmental pulmonary embolus. 2. Other findings as above. POS: [facility]
--- NOTE | 2018-08-14 21:45 | DIS ---
DATE OF ADMISSION: 08/13/2018 DATE OF DISCHARGE: 08/14/2018 PRIMARY CARE PROVIDER: Dr. Manan Ferrer in [place]. HOSPITAL COURSE: Ms. Hunt is a pleasant 53-year-old lady, who was admitted to [facility] on August 12, 2018, for chest pain. She was seen by Cardiology Service. Cardiology Service recommended that she follow up with her quality control analyst in [place] for further evaluation by cardiac catheterization. She also had an elevated D-dimer and underwent CT angiogram of the chest. The result of CT angiogram was still pending when she decided to leave against medical advice. CT angiogram report indicated that there was no evidence for central or segmental pulmonary embolus. She had marked dilatation of the pulmonary outflow tract and main pulmonary arteries, similar to prior examinations. She had material of increased density at the right lung base, which may reflect aspirated contrast, which was not present on the prior examination of August 12, 2018. She had prominent mildly enlarged portacaval lymph nodes, which appeared similar to February 2017 examination. Many thanks for allowing me to participate in your patient's care. Please feel free to contact me with any questions or concerns. Job ID: [id number]
== END 2018-08-14 03:55 | disposition left against medical advice (07) ==
LOC: ERS 18:54 → 2SW 08-13 00:07
PROVIDERS: ADMIT Internal Medicine; ATTEND Internal Medicine
DX: R07.9 Chest pain, unspecified (principal); I70.0 Atherosclerosis of aorta; I25.10 Atherosclerotic heart disease of native coronary artery without angina pectoris; I25.2 Old myocardial infarction; F17.210 Nicotine dependence, cigarettes, uncomplicated; I27.20 Pulmonary hypertension, unspecified; I73.9 Peripheral vascular disease, unspecified; Z87.74 Personal history of (corrected) congenital malformations of heart and circulatory system; Z79.82 Long term (current) use of aspirin; Z79.899 Other long term (current) drug therapy; Z88.0 Allergy status to penicillin; Z88.5 Allergy status to narcotic agent; Z88.8 Allergy status to other drugs, medicaments and biological substances; Z95.1 Presence of aortocoronary bypass graft; Z95.5 Presence of coronary angioplasty implant and graft; Z95.810 Presence of automatic (implantable) cardiac defibrillator
CPT/HCPCS: 36415; 71045; 71250; 71275; 80048; 80053; 82550; 84484; 84703; 85025; 85379; 93005; 94640; 96365; 96372; 96375; 96376; G0378; J1650; J1885; J2270; J2550; J7620; Q9967

== ENCOUNTER 2018-11-25 19:43 | Emergency (ER) | payer OTHER ==
[~2018-11-25 19:43] MED LIST changes: -ISOVUE-370 76%-LOCM 1 ML ONE; +Iopamidol 300 61% 100 ML VIAL FS ONE
[2018-11-25 20:56] LABS: #Basophils 0.1 thou/uL (0.0-0.2); #Eosinphils 0.1 thou/uL (0.0-0.7); #Lymphocytes 3.2 thou/uL (1.20-3.40); #Monocytes 1.1 thou/uL (0.11-0.59); #Neutrophils 5.1 thou/uL (1.40-6.50); %Basophils 1.1 % (0.0-1.0); %Eosinophils 1.1 % (0.0-10.0); %Lymphocytes 33.1 % (21.0-51.0); %Monocytes 11.7 % (0.0-10.0); Hemoglobin 14.3 g/dL (12.0-16.0); Mean Corpuscular HGB CONC 34.9 g/dL (32.0-36.0); Mean Corpuscular Volume 88.9 fL (78.0-98.0); Mean Platelet Volume 7.4 fL (7.4-10.4); Platelet Count 198 thou/uL (130-400); RBC Distribution Width 12.5 % (11.5-14.5); Red Blood Cell (RBC) Count 4.61 mill/uL (4.20-5.40); White Blood Cell (WBC) Count 9.7 thou/uL (4.8-10.8)
[2018-11-25] MEDS ORDERED: Metoclopramide HCl 10 MG/2 ML VIAL ONE (20:57)
[2018-11-25] MEDS ORDERED: Morphine 4 MG/ML VIAL ONE (20:57)
[2018-11-25 21:14] LABS: ALT (SGPT) 33 U/L (8-55); AST (SGOT) 24 U/L (5-34); Albumin 4.3 g/dL (3.5-5.0); Alkaline Phosphatase 88 U/L (40-150); Anion Gap 17 mmol/L (10-20); BUN (Urea Nitrogen) 19 mg/dL (9.8-20.1); Bilirubin, Total 0.6 mg/dL (0.2-1.2); Calc. Creatinine Clearance 0 mL/min (70-130); Calcium 9.4 mg/dL (7.8-10.44); Carbon Dioxide 26 mmol/L (22-29); Chloride 103 mmol/L (98-107); Estimated GFR-MDRD 73; Globulin 3.2 g/dL (2.4-3.5); Glucose 92 mg/dL (70-105); Lipase 34 U/L (8-78); Potassium 3.6 mmol/L (3.5-5.1); Protein, Total 7.5 g/dL (6.0-8.3); Sodium 142 mmol/L (136-145)
--- NOTE | 2018-11-25 21:20 | CT ---
CT ABDOMEN WITH CONTRAST CT PELVIS WITH CONTRAST CT LUMBAR SPINE: (Trauma protocol) HISTORY: Trauma to the abdomen and pelvis TECHNIQUE: IV injection of iodinated contrast media: Administered Oral contrast media: Not administered FINDINGS: Liver: No laceration Spleen: No laceration Pancreas: No surrounding fluid or fat stranding. Kidneys: No hydronephrosis or laceration. Bladder: No gross evidence of rupture. Abdominal aorta: No dissection or rupture. Small bowel: No dilation. Colon: No adjacent fat stranding. Free air: None. Free fluid: None. Pelvic bones: No displaced acute fracture identified. Lumbar spine: No acute compression fracture. There is a filter in the inferior vena cava. There is a stent in the left common femoral artery. IMPRESSION: No evidence of acute traumatic injury within the abdomen or pelvis.
[2018-11-25] MEDS ORDERED: Ketorolac Tromethamine 30 MG/ML VIAL ONE (21:39)
[2018-11-25] MEDS ORDERED: traMADol HCl 50 MG TAB ONE (22:26)
[2018-11-25 22:49] LABS: Bilirubin Negative (Negative); Blood, Urine Moderate (Negative); Clarity Clear (Clear); Glucose, Urine (Dipstick) Negative (Negative); Leukocyte Negative (Negative); Nitrite Negative (Negative); Protein, Urine (Dipstick) Negative (Neg-Trace); Urobilinogen 0.2 mg/dL (Less than 2)
[2018-11-25 23:00] LABS: Bacteria/HPF None Seen HPF (None Seen); RBC/HPF 21-50 HPF (0-3); WBC/HPF 0-3 HPF (0-3)
== END 2018-11-25 23:37 | disposition home or self-care (01) ==
LOC: SCSER 19:43
DX: S30.0XXA Contusion of lower back and pelvis, initial encounter (principal); R31.9 Hematuria, unspecified; I25.2 Old myocardial infarction; I10 Essential (primary) hypertension; Z87.891 Personal history of nicotine dependence; W17.89XA Other fall from one level to another, initial encounter
CPT/HCPCS: 74177; 80053; 81001; 83690; 85025; 96365; 96375; J1885; J2270; J2765

== ENCOUNTER 2018-12-03 13:36 | Emergency (ER) | payer OTHER ==
[2018-12-03 14:17] LABS: Bilirubin Negative (Negative); Blood, Urine 3+ (Negative); Clarity Clear (Clear); Glucose, Urine (Dipstick) Normal (Negative); Leukocyte Negative Leu/uL (Negative); Nitrite Negative (Negative); Protein, Urine (Dipstick) Negative (Neg-Trace); RBC/HPF Greater than 50 HPF (0-3); Squamous Epithelial 0-3 HPF (0-3); Urobilinogen Normal mg/dL (Less than 2); WBC/HPF None Seen HPF (0-3)
[2018-12-03 14:20] LABS: #Basophils 0.1 thou/uL (0.0-0.2); #Eosinphils 0.2 thou/uL (0.0-0.7); #Lymphocytes 3.1 thou/uL (1.20-3.40); #Monocytes 1.5 thou/uL (0.11-0.59); #Neutrophils 5.9 thou/uL (1.40-6.50); %Basophils 0.7 % (0.0-1.0); %Eosinophils 1.5 % (0.0-10.0); %Lymphocytes 29.2 % (21.0-51.0); %Monocytes 13.7 % (0.0-10.0); %Neutrophils 54.9 % (42.0-75.0); Hemoglobin 16.7 g/dL (12.0-16.0); Mean Corpuscular HGB CONC 32.5 g/dL (32.0-36.0); Mean Corpuscular Hemoglobin 30.5 pg (27.0-31.0); Mean Corpuscular Volume 93.8 fL (78.0-98.0); Mean Platelet Volume 7.9 fL (7.4-10.4); Platelet Count 252 thou/uL (130-400); RBC Distribution Width 12.6 % (11.5-14.5); Red Blood Cell (RBC) Count 5.47 mill/uL (4.20-5.40); White Blood Cell (WBC) Count 10.6 thou/uL (4.8-10.8)
[2018-12-03 14:26] LABS: Bacteria/HPF None Seen HPF (None Seen)
[2018-12-03] MEDS ORDERED: Promethazine 25 MG TAB ONE (14:28)
[2018-12-03] MEDS ORDERED: Morphine 4 MG/ML VIAL ONE ×2 (14:28→15:21)
[2018-12-03] MEDS ORDERED: Ketorolac Tromethamine 30 MG/ML VIAL ONE (14:28)
[2018-12-03 14:40] LABS: ALT (SGPT) 45 U/L (8-55); AST (SGOT) 25 U/L (5-34); Albumin 4.8 g/dL (3.5-5.0); Alkaline Phosphatase 115 U/L (40-150); Anion Gap 17 mmol/L (10-20); BUN (Urea Nitrogen) 19 mg/dL (9.8-20.1); Bilirubin, Total 0.6 mg/dL (0.2-1.2); Calc. Creatinine Clearance 0 mL/min (70-130); Calcium 10.5 mg/dL (7.8-10.44); Carbon Dioxide 25 mmol/L (22-29); Chloride 102 mmol/L (98-107); Estimated GFR-MDRD 72; Globulin 3.5 g/dL (2.4-3.5); Glucose 103 mg/dL (70-105); Protein, Total 8.3 g/dL (6.0-8.3); Sodium 140 mmol/L (136-145)
--- NOTE | 2018-12-03 14:48 | CT ---
CT OF THE ABDOMEN AND PELVIS WITHOUT IV CONTRAST INDICATION: Right-sided flank pain COMPARISON: CT the abdomen and pelvis dated November 25, 2018 FINDINGS: The lack of IV contrast limits evaluation of the solid organs of the abdomen and pelvis. ABDOMEN: Lung bases: Clear Liver: No focal lesion. Gallbladder: Surgically absent Pancreas: Normal. Adrenal glands: Normal. Spleen: Normal. Kidneys: Normal. Retroperitoneum of the upper abdomen: There are moderate calcifications involving the abdominal pelvi c vasculature. There is an endograft stent within the left common iliac artery. There is an IVC filter seen within the infrarenal IVC. Additional findings: None. Pelvis: Small and large bowel: Normal Bladder: Normal. Rectal and perirectal soft tissues:Normal. Reproductive structures: Surgically absent Free fluid in pelvis: No free fluid is evident. Lymphadenopathy pelvis: No lymphadenopathy is evident. Osseous structures: There is diffuse osteopenia. No acute fracture or subluxation demonstrated. Ther e is scattered degenerative and osteoarthritic changes. IMPRESSION: 1. No acute abnormality.
== END 2018-12-03 16:10 | disposition home or self-care (01) ==
LOC: ERS 13:36
DX: R10.32 Left lower quadrant pain (principal); R31.9 Hematuria, unspecified; I10 Essential (primary) hypertension; F17.210 Nicotine dependence, cigarettes, uncomplicated; I25.2 Old myocardial infarction; Z79.899 Other long term (current) drug therapy; Z79.82 Long term (current) use of aspirin
CPT/HCPCS: 74176; 80053; 81003; 81015; 85025; 96372; J1885; J2270; Q0169

== ENCOUNTER 2019-02-11 16:00 | Emergency (ER) | payer OTHER ==
[2019-02-11] MEDS ORDERED: Morphine 10 MG/ML VIAL ONE (17:11)
--- NOTE | 2019-02-11 17:44 | RAD ---
Left knee 4 views: 02/11/2019 COMPARISON: 04/17/2005 HISTORY: Injury, pain FINDINGS: No fracture or dislocation. No radiopaque foreign body or subcutaneous gas. IMPRESSION: No acute findings.
== END 2019-02-11 18:01 | disposition home or self-care (01) ==
LOC: SCSER 16:00
DX: S80.02XA Contusion of left knee, initial encounter (principal); I10 Essential (primary) hypertension; F17.210 Nicotine dependence, cigarettes, uncomplicated; Z79.899 Other long term (current) drug therapy; Z79.01 Long term (current) use of anticoagulants; X58.XXXA Exposure to other specified factors, initial encounter
CPT/HCPCS: 96372; J2270

== ENCOUNTER 2019-07-09 15:12 | Emergency (ER) | payer OTHER ==
[2019-07-09] MEDS ORDERED: Promethazine 25 MG TAB ONE (16:07)
[2019-07-09] MEDS ORDERED: Morphine 4 MG/ML VIAL ONE (16:07)
--- NOTE | 2019-07-09 16:30 | RAD ---
Exam:Left knee 4 views HISTORY: Pain. COMPARISON: 02/11/2019 FINDINGS: Preserved joint spaces. No joint effusion. No fracture or malalignment. IMPRESSION: Unremarkable 4 views right knee.
== END 2019-07-09 17:02 | disposition home or self-care (01) ==
LOC: ERS 15:12
DX: S83.92XA Sprain of unspecified site of left knee, initial encounter (principal); I10 Essential (primary) hypertension; E78.1 Pure hyperglyceridemia; F17.210 Nicotine dependence, cigarettes, uncomplicated; I25.2 Old myocardial infarction; E78.5 Hyperlipidemia, unspecified; E78.00 Pure hypercholesterolemia, unspecified; Z79.01 Long term (current) use of anticoagulants; Z79.82 Long term (current) use of aspirin; Z79.899 Other long term (current) drug therapy; X50.1XXA Overexertion from prolonged static or awkward postures, initial encounter
CPT/HCPCS: 96372; J2270; Q0169

== ENCOUNTER 2019-07-11 16:45 | Observation (INO) | payer OTHER ==
[~2019-07-11 16:45] MED LIST changes: -Iopamidol 300 61% 100 ML VIAL FS ONE; +Iopamidol-370 76% 500 ML 1 ML ONE
[2019-07-11] MEDS ORDERED: Furosemide 20 MG/2 ML VIAL ONE (17:26)
[2019-07-11] MEDS ORDERED: Aspirin 325 MG TAB ONE (17:26)
[2019-07-11] MEDS ORDERED: Nitroglycerin 2% Ointment 1 INCH/1 GM Packet ONE (17:26)
[2019-07-11 17:35] LABS: #Basophils 0.1 thou/uL (0.0-0.2); #Eosinphils 0.1 thou/uL (0.0-0.7); #Lymphocytes 2.5 thou/uL (1.20-3.40); #Monocytes 1.5 thou/uL (0.11-0.59); #Neutrophils 8.4 thou/uL (1.40-6.50); %Basophils 0.7 % (0.0-1.0); %Lymphocytes 19.8 % (21.0-51.0); %Monocytes 11.7 % (0.0-10.0); %Neutrophils 66.7 % (42.0-75.0); Hemoglobin 13.6 g/dL (12.0-16.0); Mean Corpuscular HGB CONC 33.8 g/dL (32.0-36.0); Mean Corpuscular Hemoglobin 32.7 pg (27.0-31.0); Mean Corpuscular Volume 96.8 fL (78.0-98.0); Mean Platelet Volume 7.1 fL (7.4-10.4); Platelet Count 300 thou/uL (130-400); RBC Distribution Width 13.8 % (11.5-14.5); Red Blood Cell (RBC) Count 4.16 mill/uL (4.20-5.40); White Blood Cell (WBC) Count 12.6 thou/uL (4.8-10.8)
[2019-07-11] MEDS ORDERED: Promethazine HCl 25 MG/ML VIAL ONE (17:38)
[2019-07-11 17:50] LABS: INR-International Normal Ratio 1.9; PTT 34.2 SEC (22.9-36.1); Prothrombin Time 21.2 SEC (12.0-14.7)
--- NOTE | 2019-07-11 17:50 | RAD ---
XR Chest 1 View Portable HISTORY: Chest pain and shortness of breath COMPARISON: 04/23/2019 FINDINGS: Changes of median sternotomy. Left-sided AICD remains in place. The heart size is stable. T he aorta is tortuous The lungs are well expanded without focal areas of consolidation, pneumothorax or pleural effusions. IMPRESSION: No radiographic evidence of acute cardiopulmonary process.
[2019-07-11 18:05] LABS: ALT (SGPT) 31 U/L (8-55); AST (SGOT) 20 U/L (5-34); Albumin 4.2 g/dL (3.5-5.0); Alkaline Phosphatase 82 U/L (40-110); Anion Gap 16 mmol/L (10-20); BUN (Urea Nitrogen) 22 mg/dL (9.8-20.1); Bilirubin, Total 0.7 mg/dL (0.2-1.2); CK (CPK) 28 U/L (29-168); Calc. Creatinine Clearance 0 mL/min (70-130); Carbon Dioxide 28 mmol/L (22-29); Chloride 97 mmol/L (98-107); Estimated GFR-MDRD 71; Glucose 86 mg/dL (70-105); Lipase 34 U/L (8-78); Potassium 4.1 mmol/L (3.5-5.1); Protein, Total 7.2 g/dL (6.0-8.3); Sodium 137 mmol/L (136-145)
[2019-07-11] MEDS ORDERED: Morphine 4 MG/ML VIAL ONE ×2 (18:44→20:14)
[2019-07-11] MEDS ORDERED: Warfarin Sodium 5 MG TAB PO SCH (19:45)
--- NOTE | 2019-07-11 20:10 | CT ---
CT ANGIO OF ABDOMEN AND PELVIS PERFORMED WITH INTRAVENOUS CONTRAST ENHANCEMENT WITH 3D RECONSTRUCTION S: 07/11/19 HISTORY: Chest tightness radiating to patient's shoulder. COMPARISON: A 08/13/18 exam. The lungs are clear of any infiltrative process. There is some ground glass opacity present. This hermes ears to be fairly chronic in this patient. Could indicate some element of edema. There is no confluen t infiltrates and no pleural effusion. There is aneurysmal dilatation of the pulmonary arteries. The main pulmonary artery is less dilated t lee on the previous exam but still evidence for pulmonary artery hypertension. There is no CT evidenc e for pulmonary embolus. The timing of this bolus yielded very suboptimal opacification of the thoracic aorta. I do not see an y obvious signs of dissection. There is no change in the appearance of the aorta. Once again, a coarc tation of the aorta is noted. Associated with this is a bypass which has been performed from the left subclavian artery to the descending thoracic aorta. No change in the appearance of the descending th oracic aorta or abdominal aorta. No aneurysm. The contrast opacification is limited in the abdominal aorta but I do not see any signs that would suggest a dissection. The liver, spleen and pancreas regions appear unremarkable. Gallbladder has been removed. Right and l eft adrenal glands and the visualized portions of the kidneys are normal in size. An IVC filter is pa rtially visualized. IMPRESSION: 1. Less than optimal opacification of the thoracic and abdominal aorta but no signs of aneurysm or any definite evidence of dissection. Coarctation to the aorta is again noted with a bypass placed from the left subclavian artery to the descending thoracic aorta. All these findings appear similar t o the previous study. 2. Evidence for pulmonary artery hypertension. 3. Chronic appearing lung changes. POS: Jan
[2019-07-11 21:03] LABS: Troponin I 0.019 ng/mL (< 0.028)
[2019-07-11 21:48] VITALS: BMI 23.7
[2019-07-11] MEDS ORDERED: Ondansetron ODT 4 MG TAB SL PRN (22:13)
[2019-07-11] MEDS ORDERED: Ondansetron PF 4 MG/2 ML Vial IVP PRN (22:13)
[2019-07-11] MEDS ORDERED: hydrOXYzine Pamoate 25 mg Capsule PO PRN (22:33)
[2019-07-11] MEDS ORDERED: Nitroglycerin 0.4 MG TAB (25 Tab Bottle) SL PRN (22:33)
[2019-07-11] MEDS ORDERED: Acetaminophen 325 MG TAB PO PRN (22:33)
[2019-07-11] MEDS ORDERED: Calcium Carbonate 500 MG ChewTAB PO PRN (22:33)
--- NOTE | 2019-07-11 22:44 | PDOC.FPRHP ---
- History of Present Illness Chief Complaint: chest pain History of Present Illness: 54yo female with extensive past cardiac history including multiple open heart surgeries presents for chest pain. Pt states around noon at acute onset dyspnea that progressed to a chest pressure described as an "elephant sitting on chest, " Pain radiated to her shoulders BL. Associated nausea with vomiting and diphoresis. Tried tylenol with no relief. Pain initially a 2, increased to 10 at presentation to ER, and then down to 7 or 8 with cat given in ED. Patient denies recent illness, taking medication as prescribed, no abd pain, dysuria, fever/chills. Pt has has MO in past but unsure if this pain is similar to that pain. In total pain lasted about 2 hours. Patient has extensive past cardiac history. 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 Had pulm artery banding as with repair of VSD. Has subsequently had Coarctation repair in 2006 with removal of portions of ribs on left side and vessel grafting. Subsequently had MO and 5v CABG. Most recently on 01/25/19 at aortic aneurysm repair and aortic valve replacement with mechanical valve. Also has had pacemaker/AICD placement. She most recently had cardiac cath in jan 2019 prior to open heart surgery and has had stress test with tufting machine operator single needle after and was recommended to undergo repeat cath but has not followed up for this. Cardiologists are at [facility] in [place]. ED Course: Given Neb x1, lasix, morpphine, warfarin, phenergen, nitro, asa - Allergies/Adverse Reactions Allergies Allergy/AdvReac Type Severity Reaction Status Date / Time ondansetron Allergy Intermediate Hives Verified 08/13/18 02:25 [From Zofran (as hydrochloride)] Penicillins Allergy unknown Verified 08/13/18 02:25 hydrocodone AdvReac Intermediate itching Verified 08/13/18 00:49 - Home Medications Medication Instructions Recorded Confirmed Type Lisinopril 10 mg PO DAILY 04/08/16 07/11/19 History Aspirin [Ecotrin Low Strength] 81 mg PO DAILY 07/22/16 07/11/19 History Metoprolol Succinate 25 mg PO DAILY 07/22/16 07/11/19 History clonazePAM [Clonazepam] 0.5 - 1 mg PO BID PRN 08/13/18 07/11/19 History Furosemide [Lasix] 40 mg PO BID 07/11/19 07/11/19 History Warfarin Sodium [Coumadin] 5 mg PO DAILY@1700 07/11/19 07/11/19 History - History PMHx: MO, HLD, HTN, VSD, Coarctation of the aortic, aortic valve replacement, PVC, recurrent bronchitis PSHx: Coarctation of aorta repair, Aortic aneurysm repair, CABG 5v, hyst, servando , pacemaker/aicd, IVF filter, carotid endarctecomty, L iliac stenting. FHx: noncontributory Social: 15py smoking history, down to 3 cigs to day, no illicits or etoh use. - Review of Systems General: denies: fever/chills, weight/appetite/sleep changes, night sweats, fatigue Eyes: denies: vision changes ENT: denies: nasal congestion, rhinorrhea Respiratory: reports: shortness of breath, exercise intolerance. denies: cough , congestion Cardiovascular: reports: chest pain. denies: palpitation, edema, paroxysmal nocturnal dyspnea, orthopnea Gastrointestinal: reports: nausea. denies: vomiting, diarrhea, constipation, abdominal pain - Vital signs BP: 128/89 HR: 91 RR: 18 Tmax: 98.9 Pox: 98% on RA Wt: 62kg - Physical Exam Constitutional: NAD, awake, alert and oriented, well developed HEENT: PERRLA, EOMI, MMM Neck: supple, trachea midline, other (CEA scar, well-healed) Chest: no-tender to palpation, other (old, well-healed sternotomy scar) Heart: RRR, normal S1/S2, pulses present, no edema, other (aortic mechanical valve click) Lungs: CTAB, no respiratory distress, good air movement, no rales/rhonchi, other (mild end exp wheeze BL) Abdomen: soft, non-tender, bowel sounds present, no hernias Musculoskeletal: normal structure, normal tone Neurological: no focal deficit Psychiatric: normal mood and affect, good judgment and insight, intact recent and remote memory FMR H&P: Results - Labs Result Diagrams: 07/12/19 04:59 07/12/19 04:59 Lab results: WBC 12.6 thou/uL (4.8-10.8) H 07/11/19 17:23 Hgb 13.6 g/dL (12.0-16.0) 07/11/19 17:23 Hct 40.3 % (36.0-47.0) 07/11/19 17: MCV 96.8 fL (78.0-98.0) 07/11/19 17: Plt Count 300 thou/uL (130-400) 07/11/19 17:23 Neutrophils % 66.7 % (42.0-75.0) 07/11/19 17:23 Sodium 137 mmol/L (136-145) 07/11/19 17:23 Potassium 4.1 mmol/L (3.5-5.1) 07/11/19 17:23 Chloride 97 mmol/L (98-107) L 07/11/19 17: Carbon Dioxide 28 mmol/L (22-29) 07/11/19 17: BUN 22 mg/dL (9.8-20.1) H 07/11/19 17: Creatinine 0.84 mg/dL (0.6-1.1) 07/11/19 17: Glucose 86 mg/dL (70-105) 07/11/19 17: Calcium 9.0 mg/dL (7.8-10.44) 07/11/19 17: Total Bilirubin 0.7 mg/dL (0.2-1.2) 07/11/19 17: AST 20 U/L (5-34) 07/11/19 17: ALT 31 U/L (8-55) 07/11/19 17: Alkaline Phosphatase 82 U/L (40-110) 07/11/19 17: Creatine Kinase 28 U/L (29-168) L 07/11/19 17:23 B-Natriuretic Peptide 87.3 pg/mL (0-100) 07/11/19 17: Serum Total Protein 7.2 g/dL (6.0-8.3) 07/11/19 17: Albumin 4.2 g/dL (3.5-5.0) 07/11/19 17: Lipase 34 U/L (8-78) 07/11/19 17:23 - EKG Interpretation EKG: RBBB, QTc of 566. L-axis dev. Good R wave progression. Initial EKG with what appears to be ST depression in Leads II, AVL, V4-V6 which appears to resolve on repeat EKG. - Radiology Interpretation CT scan - chest Status: report reviewed by me (negative for PE) Chest x-ray Status: image reviewed by me (AICD in place, sternotomy wires in place, cardiomegaly. No focal consoldiation), report reviewed by me (no acute CPP) FMR H&P: A/P - Problem List (1) Atypical chest pain Current Visit: Yes Status: Acute Code(s): R07.89 - OTHER CHEST PAIN (2) PVD (peripheral vascular disease) Current Visit: Yes Status: Chronic Code(s): I73.9 - PERIPHERAL VASCULAR DISEASE, UNSPECIFIED (3) CHD (congenital heart disease) Current Visit: No Status: Chronic Comment: s/p PA banding and VSD repair as child (4) H/O aortic coarctation repair Current Visit: Yes Status: Chronic (5) HTN (hypertension) Current Visit: Yes Status: Chronic Code(s): I10 - ESSENTIAL (PRIMARY) HYPERTENSION Qualifiers: Comment: controlled (6) S/P IVC filter Current Visit: No Status: Chronic Comment: unknown date. - Plan 54yo CF with history of extensive cardiac disease presents for atypical chest pain #Atypical Chest pain - Substernal pressure, radiating to shoulders, minimally relieved by nitro - Trop neg x3, EKG with RBBB and initial ST depression but repeat EKG without ST depression, suspect RBBB 2/2 post-open heart surgery changes, new BBB as compared to previous EKG - elevated D-dimer, CTA negative PE. BNP normal at 87. - Heart Score 5-6 - extensive cardiac history with recent abnormal stress per pt and told needs cardiac cath - will monitor on tele - Consult cards in AM for further recommendations due to extensive history - will try to obtain records from [facility] - prn nitro, morphine #QT prolongation - QTC 566, avoid all QT prolonging medications - will monitor lytes and correct as appropriate, monitor on tele #Mechanical aortic valve - On warfarmin 5mg daily with 7.5mg on s - INR 1.9, subtherapeutic, will cont monitor and adjust as needed #Extensive cardiac history - h/o aortic aneurysm repair, [place] s/p CABG, aortic valve replacement, aortic coarctation repair - will cont home medications, will attempt to obtain records #Tob abuse - possibly underlying COPD, wheeze on exam, will use nebs prn and rec OP f/u - counseled extensively on hazards of smoking and recommended cessation, pt voiced agreement and understanding and states is trying to quit Code: Full PCP: OOT Diet: NPO IVF: SL VTE: On warfarin Disposition/LOS: Admit to tele obs for atypical chest pain. Consult Cards in AM. Anticipate LOS < 48hrs. FMR H&P: Upper Level - Pertinent history 54 year old female with extensive cardiac history (see internal carver H&P for full details) presents with chest pain that started at noon associated with acute onset dyspnea. Patient states chest pain was "pressure-like" in nature. Pain radiated to bother shoulders. Pain associated with nausea and diaphoresis. No relief with Tylenol. Pain initially a 2 and increased in intensity to a 10 prior to presentation to ED. Pain decreased to 7 or 8 after nitro and morphine in ED. Patient had cardiac cath and AV replacement with mechanical valve in January of 2019. Patient does not know what her cardiac cath showed at that time. [facility] is located at [facility] in [place]. Patient does endorse smoking history. She is down to 4-5 cig/day from a PPD back in January. - Pertinent findings General: Alert and oriented x3. No acute distress. Extremely talkative. HEENT: MMM. Card: RRR. Mechanical valve mumur. Resp: Wheezing in lungs throughout. Abd: Soft, non-tender, bowel sounds present Ext: No edema or cyanosis - Plan Date/Time: 07/11/19 0188 IVenessa, have evaluated this patient and agree with findings/plan as outlined by internal carver resident. Pertinent changes/additions are listed here. Atypical chest pain - Pain not relieved with nitro or morphine - Patient in no acute distress - Heart score 5 - Patient contributes pain to underlying anxiety - Patient with recent cardiac cath 01/2019; will obtain records from [facility] in [place] - Cardiology consult pending review of records - Nitro, morphine PRN - Significant cardiac history makes patient high risk - Troponin neg - EKG initially with ST depressions in leads I, II, V5, V6, and RBBB, repeat EKG shows just the RBBB QT prolongation - QTC 566, avoid all QT prolonging medications - Will monitor electrolytes and correct as appropriate, monitor on tele Mechanical aortic valve - On warfarmin 5mg daily with 7.5mg on Wednesday's; 7.5 mg on Wed was recent change as of last week - INR 1.9, subtherapeutic, will cont monitor and adjust as needed - Will monitor INR q48 hours until therapeutic Extensive cardiac history - h/o aortic aneurysm repair, [place] s/p CABG, aortic valve replacement, aortic coarctation repair - Will continue home medications, will attempt to obtain records Tobacco abuse - Possibly underlying COPD, wheezing on exam, will use nebs prn and rec OP f/u - Counseled extensively on hazards of smoking and recommended cessation, pt voiced agreement and understanding and states is trying to quit DVT PPX: Coumadin, IVC filter Code Status: Full Dispo: Obs on telemetry. Anticipate LOS <48 hours.
[2019-07-11] MEDS: Morphine 4 MG/ML VIAL SLOW IVP PRN (23:01)
[2019-07-11] MEDS ORDERED: Nitroglycerin 2% Ointment 1 INCH/1 GM Packet TOP SCH (23:59)
[2019-07-12 00:12] LABS: Troponin I 0.023 ng/mL (< 0.028)
[2019-07-12] MEDS: Morphine 4 MG/ML VIAL SLOW IVP PRN ×5 (03:22→21:42)
[2019-07-12 05:24] LABS: #Basophils 0.1 thou/uL (0.0-0.2); #Eosinphils 0.1 thou/uL (0.0-0.7); #Lymphocytes 2.8 thou/uL (1.20-3.40); #Monocytes 1.7 thou/uL (0.11-0.59); #Neutrophils 6.6 thou/uL (1.40-6.50); %Basophils 1.1 % (0.0-1.0); %Eosinophils 1.3 % (0.0-10.0); %Lymphocytes 24.3 % (21.0-51.0); %Monocytes 14.7 % (0.0-10.0); %Neutrophils 58.5 % (42.0-75.0); Hemoglobin 13.1 g/dL (12.0-16.0); Mean Corpuscular HGB CONC 32.7 g/dL (32.0-36.0); Mean Corpuscular Hemoglobin 32.4 pg (27.0-31.0); Mean Corpuscular Volume 99.1 fL (78.0-98.0); Platelet Count 253 thou/uL (130-400); Red Blood Cell (RBC) Count 4.04 mill/uL (4.20-5.40); White Blood Cell (WBC) Count 11.3 thou/uL (4.8-10.8)
[2019-07-12 05:40] LABS: Chloride 100 mmol/L (98-107); Potassium 4.8 mmol/L (3.5-5.1); Sodium 132 mmol/L (136-145)
[2019-07-12 05:41] LABS: Calcium 8.5 mg/dL (7.8-10.44); Glucose 82 mg/dL (70-105)
[2019-07-12 05:43] LABS: Anion Gap 17 mmol/L (10-20); Carbon Dioxide 20 mmol/L (22-29)
[2019-07-12 05:45] LABS: BUN (Urea Nitrogen) 24 mg/dL (9.8-20.1); Calc. Creatinine Clearance 74 mL/min (70-130); Estimated GFR-MDRD 73
--- NOTE | 2019-07-12 07:14 | PDOC.FM ---
- Subjective Subjective: still report pain in the upper chest to the back, relatively unchanged, some dyspnea when walking. - Objective Vital Signs & Weight: Vital Signs (12 hours) Temp Pulse Resp BP BP Pulse Ox 07/12/19 03:22 98.3 F 85 18 123/76 100 07/11/19 23:00 98 F 88 20 114/69 98 07/11/19 21:22 98.4 F 94 20 126/74 100 Weight Weight 58.786 kg I&O: 07/11/19 07/12/19 07/13/19 06:59 06:59 06:59 Intake Total 440 Balance 440 Result Diagrams: 07/12/19 04:59 07/12/19 04:59 Phys Exam - Physical Examination Constitutional: NAD HEENT: moist MMs Neck: supple Respiratory: clear to auscultation bilateral Cardiovascular: RRR Gastrointestinal: soft, no distention Musculoskeletal: no edema Neurological: moves all 4 limbs Psychiatric: normal affect Skin: no rash Dx/Plan (1) Atypical chest pain Code(s): R07.89 - OTHER CHEST PAIN Status: Acute (2) H/O aortic coarctation repair Status: Chronic (3) HTN (hypertension) Code(s): I10 - ESSENTIAL (PRIMARY) HYPERTENSION Status: Chronic Qualifiers: (4) CHD (congenital heart disease) Status: Chronic (5) S/P IVC filter Status: Chronic - Plan Plan: Atypical Chest pain - Substernal pressure, radiating to shoulders, minimally relieved by nitro on admission - Trop neg x3, EKG with RBBB and initial ST depression but repeat EKG without ST depression, suspect RBBB 2/2 post-open heart surgery changes, new BBB as compared to previous EKG - extensive cardiac history with recent abnormal stress per pt and told needs cardiac cath - obtain records from [facility], consult cards - prn nitro, morphine QT prolongation - QTC 566, avoid all QT prolonging medications - will monitor lytes and correct as appropriate, monitor on tele Mechanical aortic valve - On warfarmin 5mg daily with 7.5mg on s - INR 1.9, subtherapeutic, will cont monitor and adjust as needed Extensive cardiac history - h/o aortic aneurysm repair, [place] s/p CABG, aortic valve replacement, aortic coarctation repair - will cont home medications, will attempt to obtain records Tob abuse - probable COPD, nebs prn and rec OP f/u Code: Full VTE: On warfarin Disposition/LOS: further eval/treatment today Addendum - Attending - Attending Attestation Date/Time: 07/12/19 2128 I personally evaluated the patient and discussed the management with Dr. Hodges. I agree with the History, Examination, Assessment and Plan documented above with any addition or exceptions noted below. Patient reports resolved chest pressure, but continues to have nausea and midsternal pressure. Consider esophageal etiologies. Due to her extensive cardiac history and congenital defects, we will discuss this case with cardiology as well as obtain records from her previous hospitals.
[2019-07-12] MEDS: Aspirin 81 mg Enteric Coated Tablet PO SCH (08:41)
[2019-07-12] MEDS: Furosemide 40 MG TAB PO SCH ×2 (08:41→19:21)
[2019-07-12] MEDS: Lisinopril 10 MG TAB PO SCH (08:41)
[2019-07-12] MEDS: Promethazine 25 MG TAB PO PRN (11:21)
[2019-07-12] MEDS ORDERED: Warfarin Sodium 7.5 MG TAB PO SCH (17:00)
[2019-07-12] MEDS ORDERED: Warfarin Sodium 5 MG TAB PO SCH (17:00)
[2019-07-12] MEDS ORDERED: Furosemide 40 MG/4 ML VIAL SLOW IVP SCH (17:15)
--- NOTE | 2019-07-13 00:19 | CON ---
DATE OF CONSULTATION: HISTORY OF PRESENT ILLNESS: The patient is a 54-year-old woman, who presents with persistent chest discomfort. The patient has a long history of coronary artery disease. She has a long history of cardiac disease. She had a history of banding of her pulmonary artery. The patient has a history also of coarctation and VSD repair. The patient has previously had seven cardiac and had placement of automatic implantable cardiac defibrillator. The patient has been on several occasions with chest discomfort. She most recently had aortic valve replacement in January along with repair of her aortic aneurysm. The patient states on several occasions that she has developed dyspnea and been diagnosed with congestive heart failure. She presents once again with recurrent chest discomfort and dyspnea. This has been persistent for the past 24 hours. She states that it seems to be worse when she takes a deep breath. PAST MEDICAL HISTORY: 1. History of ventricular septal defect repair. 2. History of coarctation repair. 3. History of sudden cardiac . 4. History of pulmonary artery banding. 5. History of an IVC filter. 6. Dyslipidemia. 7. Status post aortic valve replacement. PAST SURGICAL HISTORY: Former smoker. FAMILY HISTORY: No strong family history of heart disease. MEDICATIONS: See nursing list. REVIEW OF SYSTEMS: Unremarkable. PHYSICAL EXAMINATION: GENERAL: This is a middle-aged woman, in no acute distress. VITAL SIGNS: Blood pressure 120/70. NECK: Showed no jugular venous distention. LUNGS: Bilateral wheezes. HEART: Regular rate and rhythm with normal S1, S2, with no murmurs. ABDOMEN: Nondistended. EXTREMITIES: Showed no edema. VASCULAR: Radial pulses 2+. LABORATORY DATA: Sodium 132, potassium 4.8, chloride 100, bicarbonate 20, BUN 24, creatinine 0.82, troponin 0.023, BNP 87. White blood cell count 11.3, hemoglobin 13.1, hematocrit 40.0, platelets 253. INR was 1.9. Her EKG revealed normal sinus rhythm, right bundle branch. T-wave abnormality suggestive of ischemia. IMPRESSION: 1. Chest pain, atypical. 2. History of ventricular septal defect repair. 3. History of pulmonary artery banding. 4. Status post aortic valve replacement. 5. History of aortic valve replacement. 6. History of aortic aneurysm repair. 7. History of AICD. This patient presents with atypical chest pain. Her cardiac enzymes reveal no evidence of myocardial infarction. We will try to obtain records from her [facility]. She needs to follow up with a congenital heart disease specialist. We will follow this patient with you through her hospitalization. Job ID: [id number] [email or web address]
[2019-07-13] MEDS: Morphine 4 MG/ML VIAL SLOW IVP PRN ×6 (01:44→22:20)
[2019-07-13 05:50] LABS: INR-International Normal Ratio 1.8; Prothrombin Time 20.7 SEC (12.0-14.7)
--- NOTE | 2019-07-13 06:36 | PDOC.FM ---
- Subjective Subjective: pt resting comfortably in bed, reports productive cough, chest pain with deep breath and tightness - Objective Vital Signs & Weight: Vital Signs (12 hours) Temp Pulse Resp BP BP Pulse Ox 07/13/19 04:56 98.4 F 94 18 127/76 99 07/13/19 00:00 98.7 F 92 18 123/78 100 07/12/19 22:04 96 07/12/19 19:23 98.2 F 90 16 136/81 97 Weight Weight 58.786 kg I&O: 07/11/19 07/12/19 07/13/19 06:59 06:59 06:59 Intake Total 440 1770 Output Total 1700 Balance 440 70 Result Diagrams: 07/12/19 04:59 07/12/19 04:59 Phys Exam - Physical Examination Constitutional: NAD HEENT: moist MMs Neck: no JVD Respiratory: wheezing present Cardiovascular: RRR Gastrointestinal: soft Musculoskeletal: pulses present Neurological: moves all 4 limbs Psychiatric: normal affect Skin: no rash Dx/Plan (1) Atypical chest pain Code(s): R07.89 - OTHER CHEST PAIN Status: Acute (2) H/O aortic coarctation repair Status: Chronic (3) HTN (hypertension) Code(s): I10 - ESSENTIAL (PRIMARY) HYPERTENSION Status: Chronic Qualifiers: (4) CHD (congenital heart disease) Status: Chronic (5) S/P IVC filter Status: Chronic - Plan Plan: Atypical Chest pain - Substernal pressure, radiating to shoulders, minimally relieved by nitro on admission - Trop neg x3, EKG with RBBB and initial ST depression but repeat EKG without ST depression, suspect RBBB 2/2 post-open heart surgery changes, new BBB as compared to previous EKG - extensive cardiac history with recent abnormal stress per pt and told needs cardiac cath - obtain records from [email or web address], consult cards - prn nitro, morphine - stress test QT prolongation - QTC 566, avoid all QT prolonging medications - will monitor lytes and correct as appropriate, monitor on tele Mechanical aortic valve - On warfarmin 5mg daily with 7.5mg on s - INR 1.9, subtherapeutic, will cont monitor and adjust as needed Extensive cardiac history - h/o aortic aneurysm repair, [place] s/p CABG, aortic valve replacement, aortic coarctation repair - will cont home medications, will attempt to obtain records Tob abuse - probable COPD, nebs lucía and rec OP f/u Code: Full VTE: On warfarin Dispo: further dispo pending stress Addendum - Attending - Attending Attestation Date/Time: 07/13/19 1008 I personally evaluated the patient and discussed the management with Dr. Hodges. I agree with the History, Examination, Assessment and Plan documented above with any addition or exceptions noted below. Patient overall stable. Chest symptoms somewhat better with neb treatments so will continue those. Due to tobacco history, she likely has some degree of chronic lung disease and would benefit from those treatments. She will undergo stress testing today per Cardiology recs. Further mgmt per that result and further cardiology recs.
[2019-07-13] MEDS: Aspirin 81 mg Enteric Coated Tablet PO SCH (07:57)
[2019-07-13] MEDS: Lisinopril 10 MG TAB PO SCH (07:57)
[2019-07-13] MEDS: Furosemide 40 MG TAB PO SCH ×2 (07:58→17:04)
[2019-07-13] MEDS ORDERED: Lorazepam 0.5 MG TAB PO ONE (09:22)
[2019-07-13] MEDS ORDERED: Lorazepam 2 MG/ML VIAL SLOW IVP ONE (09:49)
[2019-07-13] MEDS ORDERED: Lorazepam 2 MG/ML VIAL SLOW IVP SCH (10:00)
--- NOTE | 2019-07-13 10:41 | EKG ---
Test Reason : STAT Blood Pressure : / mmHG Vent. Rate : 089 BPM Atrial Rate : 089 BPM P-R Int : 154 ms QRS Dur : 132 ms QT Int : 432 ms P-R-T Axes : 006 -04 132 degrees QTc Int : 525 ms Normal sinus rhythm Right bundle branch block Prolonged QT T wave abnormality, consider lateral ischemia Abnormal ECG Confirmed by APRIL DOAN ([id number]) on 07/13/2019 10:40:56 AM Referred By: MICHELE MATTHEW Confirmed By:APRIL DOAN
[2019-07-13] MEDS: Lorazepam 2 MG/ML VIAL SLOW IVP SCH (14:25)
[2019-07-13] MEDS ORDERED: Warfarin Sodium 5 MG TAB PO SCH (17:00)
[2019-07-13] MEDS ORDERED: Warfarin Sodium 7.5 MG TAB PO ONE (17:00)
[2019-07-13] MEDS: Promethazine 25 MG TAB PO PRN (17:05)
[2019-07-14] MEDS: Morphine 4 MG/ML VIAL SLOW IVP PRN ×4 (02:22→14:41)
[2019-07-14 04:55] LABS: Hemoglobin 12.3 g/dL (12.0-16.0); Platelet Count 223 thou/uL (130-400)
--- NOTE | 2019-07-14 06:50 | PDOC.FM ---
- Subjective Subjective: pt resting comfortably in bed, reports cough/sob improved. minimal chest pain - Objective Vital Signs & Weight: Vital Signs (12 hours) Temp Pulse Resp BP Pulse Ox 07/14/19 04:20 98.4 F 100 18 133/73 100 07/14/19 02:08 97 16 96 07/13/19 22:10 99 18 96 07/13/19 19:44 97.9 F 108 H 16 139/64 99 07/13/19 19:09 101 H 16 95 Weight Weight 58.786 kg I&O: 07/12/19 07/13/19 07/14/19 06:59 06:59 06:59 Intake Total 440 1770 1000 Output Total 1700 3501 Balance 440 70 -2501 Result Diagrams: 07/14/19 04:34 07/12/19 04:59 Phys Exam - Physical Examination Constitutional: NAD HEENT: moist MMs Neck: no JVD Respiratory: clear to auscultation bilateral Cardiovascular: RRR Gastrointestinal: soft Musculoskeletal: pulses present Neurological: moves all 4 limbs Psychiatric: normal affect Skin: no rash Dx/Plan (1) Atypical chest pain Code(s): R07.89 - OTHER CHEST PAIN Status: Acute (2) H/O aortic coarctation repair Status: Chronic (3) HTN (hypertension) Code(s): I10 - ESSENTIAL (PRIMARY) HYPERTENSION Status: Chronic Qualifiers: (4) CHD (congenital heart disease) Status: Chronic (5) S/P IVC filter Status: Chronic - Plan Plan: Atypical Chest pain - Substernal pressure, radiating to shoulders, minimally relieved by nitro on admission - Trop neg x3, EKG with RBBB and initial ST depression but repeat EKG without ST depression, suspect RBBB 2/2 post-open heart surgery changes, new BBB as compared to previous EKG - extensive cardiac history with recent abnormal stress per pt and told needs cardiac cath - obtain records from [facility], consult cards - prn nitro, morphine - stress test QT prolongation - QTC 566, avoid all QT prolonging medications - will monitor lytes and correct as appropriate, monitor on tele Mechanical aortic valve - On warfarmin 5mg daily with 7.5mg on s - INR 1.9, subtherapeutic, will cont monitor and adjust as needed Extensive cardiac history - h/o aortic aneurysm repair, [place] s/p CABG, aortic valve replacement, aortic coarctation repair - will cont home medications, will attempt to obtain records Tob abuse - probable COPD, nebs lucía and rec OP f/u Code: Full VTE: On warfarin Dispo: further dispo pending stress Addendum - Attending - Attending Attestation Date/Time: 07/14/19 1843 I personally evaluated the patient and discussed the management with Dr. Hodges. I agree with the History, Examination, Assessment and Plan documented above with any addition or exceptions noted below. Patient doing well. Awaiting stress test results and further input from cardiology. Dispo per their recs.
[2019-07-14] MEDS: Aspirin 81 mg Enteric Coated Tablet PO SCH (07:53)
[2019-07-14] MEDS: Furosemide 40 MG TAB PO SCH (07:53)
[2019-07-14] MEDS: Lisinopril 10 MG TAB PO SCH (07:53)
[2019-07-14 07:57] LABS: INR-International Normal Ratio 2.3
[2019-07-14] MEDS: Promethazine 25 MG TAB PO PRN (08:59)
[2019-07-14] MEDS: Lorazepam 2 MG/ML VIAL SLOW IVP SCH (09:45)
--- NOTE | 2019-07-14 12:20 | NM ---
EXAM: CARDIAC SPECT HISTORY: Chest pain, coronary artery disease, status post CABG, hypertension, dyslipidemia TECHNIQUE: A myocardial perfusion scan was performed using the single isotope 2day protocol with tech netium 99m sestamibi. [30 mCi] was injected intravenously for the rest exam followed by 30 mCi for the stress study. Pharmacologic stress with Lexiscan was monitored and interpreted by Luis Slaughter nurse practitioner FINDINGS: There is a fixed defect in the septum with associated hypokinesis likely due to CABG. No re versible defects are seen. Gated SPECT LVEF: 76% Wall motion exam: Septal hypokinesis. IMPRESSION: No evidence of reversible ischemia
[2019-07-14 12:29] VITALS: BP 139/79
[2019-07-14 13:26] VITALS: TEMP 98.9
[2019-07-14] MEDS ORDERED: Regadenoson 0.4 MG/5 ML SYRINGE ONE (14:31)
== END 2019-07-14 15:44 | disposition home or self-care (01) ==
LOC: ERS 16:45 → 2SW 20:21
PROVIDERS: ADMIT Family Medicine; ATTEND Family Medicine
DX: R07.89 Other chest pain (principal); I25.10 Atherosclerotic heart disease of native coronary artery without angina pectoris; E78.5 Hyperlipidemia, unspecified; I10 Essential (primary) hypertension; I73.9 Peripheral vascular disease, unspecified; Z79.01 Long term (current) use of anticoagulants; Z79.82 Long term (current) use of aspirin; Z79.899 Other long term (current) drug therapy; Z87.891 Personal history of nicotine dependence; Z88.0 Allergy status to penicillin; Z88.5 Allergy status to narcotic agent; Z88.8 Allergy status to other drugs, medicaments and biological substances; Z95.1 Presence of aortocoronary bypass graft; Z95.4 Presence of other heart-valve replacement; Z95.810 Presence of automatic (implantable) cardiac defibrillator
CPT/HCPCS: 36415; 71045; 71275; 72191; 74175; 78452; 80048; 80053; 82550; 83690; 83880; 84484; 85014; 85018; 85025; 85049; 85379; 85610; 85730; 93005; 93010; 93017; 94640; 96365; 96375; 96376; A9500; G0378; J1940; J2060; J2270; J2550; J2785; J7620; Q0169; Q0177; Q9967

== ENCOUNTER 2019-08-15 12:53 | Emergency (ER) | payer OTHER ==
[2019-08-15] MEDS ORDERED: Aspirin Chewable 81 MG TAB ONE (13:03)
[2019-08-15] MEDS ORDERED: Nitroglycerin 2% Ointment 1 INCH/1 GM Packet ONE (13:03)
[2019-08-15 13:29] LABS: #Eosinphils 0.2 thou/uL (0.0-0.7); #Lymphocytes 1.9 thou/uL (1.20-3.40); #Monocytes 0.9 thou/uL (0.11-0.59); #Neutrophils 4.2 thou/uL (1.40-6.50); %Basophils 0.6 % (0.0-1.0); %Eosinophils 2.4 % (0.0-10.0); %Lymphocytes 26.2 % (21.0-51.0); %Monocytes 12.3 % (0.0-10.0); %Neutrophils 58.4 % (42.0-75.0); Hemoglobin 14.7 g/dL (12.0-16.0); Mean Corpuscular HGB CONC 34.1 g/dL (32.0-36.0); Mean Corpuscular Hemoglobin 32.9 pg (27.0-31.0); Mean Corpuscular Volume 96.5 fL (78.0-98.0); Mean Platelet Volume 7.8 fL (7.4-10.4); Platelet Count 318 thou/uL (130-400); RBC Distribution Width 12.8 % (11.5-14.5); Red Blood Cell (RBC) Count 4.46 mill/uL (4.20-5.40); White Blood Cell (WBC) Count 7.2 thou/uL (4.8-10.8)
[2019-08-15 13:35] LABS: INR-International Normal Ratio 1.3; PTT 43.2 SEC (22.9-36.1); Prothrombin Time 16.1 SEC (12.0-14.7)
[2019-08-15 13:46] LABS: ALT (SGPT) 33 U/L (8-55); AST (SGOT) 28 U/L (5-34); Albumin 4.6 g/dL (3.5-5.0); Alkaline Phosphatase 80 U/L (40-110); Anion Gap 18 mmol/L (10-20); BUN (Urea Nitrogen) 12 mg/dL (9.8-20.1); Bilirubin, Total 0.5 mg/dL (0.2-1.2); CK (CPK) 24 U/L (29-168); Calc. Creatinine Clearance 0 mL/min (70-130); Calcium 9.8 mg/dL (7.8-10.44); Carbon Dioxide 21 mmol/L (22-29); Chloride 106 mmol/L (98-107); Estimated GFR-MDRD 75; Globulin 3.3 g/dL (2.4-3.5); Glucose 96 mg/dL (70-105); Potassium 3.8 mmol/L (3.5-5.1); Protein, Total 7.9 g/dL (6.0-8.3); Sodium 141 mmol/L (136-145)
--- NOTE | 2019-08-15 13:48 | RAD ---
Exam: Chest one view HISTORY:Chest pain. Comparison: 07/11/2019 FINDINGS: Pacing device: Stable left-sided dual-lead transvenous defibrillator. Cardiac silhouette: Upper normal heart size. Sternotomy wires are redemonstrated. Aorta: Postsurgical changes compatible with a bypass with the left subclavian artery and descending t horacic aorta are redemonstrated. Pulmonary vessels: Normal Costophrenic angles: Clear LUNGS: No masses or consolidation. Pneumothorax: None Osseous abnormalities: None IMPRESSION: No acute cardiopulmonary process.
--- NOTE | 2019-08-17 11:13 | EKG ---
Test Reason : Blood Pressure : / mmHG Vent. Rate : 108 BPM Atrial Rate : 122 BPM P-R Int : 000 ms QRS Dur : 156 ms QT Int : 478 ms P-R-T Axes : 000 -72 085 degrees QTc Int : 640 ms Ventricular-paced rhythm Abnormal ECG Confirmed by ALTA ACOSTA, SJ Miles ([id number]), scientific editor DHAVAL PRO ([id number]) on 08/17/2019 11:12:39 AM Referred By: Confirmed By:SJ HOLM MD
== END 2019-08-15 14:07 | disposition home or self-care (01) ==
LOC: ERS 12:53
DX: R07.9 Chest pain, unspecified (principal); I25.2 Old myocardial infarction; E78.5 Hyperlipidemia, unspecified; I10 Essential (primary) hypertension; F17.210 Nicotine dependence, cigarettes, uncomplicated; Z79.899 Other long term (current) drug therapy; Z79.82 Long term (current) use of aspirin
CPT/HCPCS: 36415; 71045; 80053; 82550; 83880; 84484; 85025; 85610; 85730; 93005